=== PATIENT | male | born 1980 | race Caucasian/White ===

== ENCOUNTER 2016-08-20 08:11 | Emergency (ER) | payer OTHER ==
[~2016-08-20] VITALS: Ht 180.3 cm; Wt 107.9 kg
[~2016-08-20 08:11] MED LIST: ATEN-173 PO; CHOLMIS5 PO
[2016-08-20 08:15] VITALS: TEMP 36.4; Ht 180.3 cm; Wt 107.9 kg
--- NOTE | 2016-08-20 09:03 | DIAGNOSTIC IMAGING REPORT ---
RIGHT FOOT 3 VIEWS CLINICAL HISTORY: Right lateral foot pain. FINDINGS: 3 views of the right foot are compared to study dated 02/11/2016. The skeletal structures appear osteopenic. There is mild sclerotic change and contour deformity involving the fourth and fifth metatarsal shafts, likely related to remote fracture. No acute fracture is seen. The joint spaces of the foot appear preserved. The overlying soft tissues are within normal limits. IMPRESSION: 1. Osteopenia with no acute bony abnormality seen in the right foot. 2. 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 Electronically signed by: Jae Calvillo M.D. 08/20/2016 9:01 AM Dictated Date/Time: 08/20/2016 8:59 AM
[2016-08-20 09:49] VITALS: BP 129/73; PULSE 72; O2SAT 96
--- NOTE | 2016-08-20 10:20 | EMERGENCY ROOM VISIT NOTE ---
History First contact with patient: 08:18 Chief Complaint: FOOT PAIN Stated Complaint: FOOT PAIN/BURNING History of Present Illness The patient is a 35 year old male who presents to the Emergency Room with complaints of Rt foot pain. Pain is described as a burning sensation on the lateral aspect of the right foot, worse with walking. No pain at rest . He denies recent injury. He also reports occasional tingling on lateral aspect of Rt foot. He has a hx of fx involving right foot Oct 2015, and an additional fx of the same foot 6 wks later. Patient is Diabetic with BGL measurements in the 200's , last A1C 3 mos ago per patient was 10. Pt denies headache, change in vision, fevers, chest pain, shortness of breath, nausea, vomiting, diarrhea, pain with urination, and melena. Review of Systems See HPI for pertinent positives & negatives. A total of 10 systems reviewed and were otherwise negative. Past Medical/Surgical History Medical Problems: (1) Diabetes type I Diabetes II Social History Smoking Status: Never Smoker Current/Historical Medications Scheduled Insulin Glargine (Lantus), 26 UNITS SQ BID Insulin Lispro (Human) (Humalog), 1 DOSE SC sliding scale Loratadine (Claritin), 10 MG PO HS Simvastatin (Zocor), 20 MG PO QPM Valsartan (Diovan), 80 MG PO DAILY Allergies Coded Allergies: No Known Allergies (Unverified , 08/20/16) Physical Exam Vital Signs Date Time Temp Pulse Resp B/P Pulse Ox O2 Delivery O2 Flow Rate FiO2 08/20/16 09:49 72 16 129/73 96 08/20/16 08:15 36.4 77 18 136/78 98 Room Air Physical Exam GENERAL: alert, well appearing, well nourished, no distress, non-toxic EYE EXAM: normal conjunctiva, PERRL and EOM's grossly intact NECK: supple, no nuchal rigidity, no adenopathy, non-tender LUNGS: Clear to auscultation. Normal chest wall mechanics HEART: no murmurs, S1 normal and S2 normal ABDOMEN: abdomen soft, non-tender, normo-active bowel sounds, no masses, no rebound or guarding. SKIN: no rashes and no bruising UPPER EXTREMITIES: upper extremities are grossly normal. LOWER EXTREMITIES: Rt foot: tenderness at lateral aspect of foot, sensation intact, full ROM , PT, DP,pulses intact NEURO EXAM: Normal sensorium, cranial nerves II-XII grossly intact, normal speech, no gross weakness of arms, no gross weakness of legs. Gross sensation intact. Medical Decision & Procedures ER Provider Diagnostic Interpretation: RIGHT FOOT 3 VIEWS CLINICAL HISTORY: Right lateral foot pain. FINDINGS: 3 views of the right foot are compared to study dated 02/11/2016. The skeletal structures appear osteopenic. There is mild sclerotic change and contour deformity involving the fourth and fifth metatarsal shafts, likely related to remote fracture. No acute fracture is seen. The joint spaces of the foot appear preserved. The overlying soft tissues are within normal limits. IMPRESSION: 1. Osteopenia with no acute bony abnormality seen in the right foot. 2. 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 Medical Decision 35 yo M with hx of poorly controlled DM II, hx of multiple fx's involving Rt foot p/w Rt sided lateral foot pain x a few wks Etiologies such as fracture, dislocation, neurovascular compromise, DM neuropathy, compartment syndrome, soft tissue injury, as well as others were entertained. Rt Foot Pain -burning sensation on lateral aspect of rt foot - as pain is unilateral, etiology may be due to fx although acute fx is not seen on radiologist impression. neuropathy was considered given patient poorly controlled Diabetes however unilateral nature and distribution of pain is not immediately consistent with this etiology X-ray Rt foot: No acute fx 1. Osteopenia with no acute bony abnormality seen in the right foot. 2. 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 I discussed the findings and the treatment plan with the patient. He verbalizes agreement and understanding. He was discharged home wit follow up to PCP within 24 hrs. Impression Primary Impression: Foot pain Departure Information Dispostion Home / Self-Care Condition GOOD Referrals No Doctor, Assigned (PCP) Patient Instructions My [facility] Resident Tracking Resident Involvement: Resident Care Provided Care Provided: Adult ED Problem Qualifiers Primary Impression: Foot pain Laterality: right Qualified Codes: M79.671 - Pain in right foot
--- NOTE | 2016-08-20 14:13 | EMERGENCY ROOM VISIT NOTE ---
History Report prepared by Yahaira: Elis Chandler Under the Supervision of: Dr. Randy Ochoa D.O. First contact with patient: 08:18 Chief Complaint: FOOT PAIN Stated Complaint: FOOT PAIN/BURNING History of Present Illness The patient is a 35 year old male who presents to the Emergency Room with complaints of persistent right lateral foot pain starting 3 weeks ago. He describes the pain as burning. The pain worsens with walking. At rest, he experiences little pain. He reports some tingling at times. He denies any injury. He denies any knee pain, hip pain, or numbness. He denies any chest pain , SOB, nausea, vomiting, or diarrhea. He has a history of diabetes. He checks his sugars regularly and they run in the 200s normally. He has previously fractured his foot. He works in [employer]. Source of History: patient Onset: 3 weeks ago Position: foot (right) Quality: burning Timing: other (persistent) Modifying Factors (Worsening): other (walking) Modifying Factors (Relieving): rest Associated Symptoms: No SOB, No chest pain, No diarrhea, No nausea, No numbness, No vomiting Note: Pt reports tingling. Pt denies knee pain, hip pain. Review of Systems See HPI for pertinent positives & negatives. A total of 10 systems reviewed and were otherwise negative. Past Medical & Surgical Medical Problems: (1) Diabetes type I Family History Diabetes mellitus Social History Smoking Status: Never Smoker Alcohol Use: none Marital Status: in relationship Housing Status: lives with significant other Occupation Status: employed Current/Historical Medications Scheduled Insulin Glargine (Lantus), 26 UNITS SQ BID Insulin Lispro (Human) (Humalog), 1 DOSE SC sliding scale Loratadine (Claritin), 10 MG PO HS Simvastatin (Zocor), 20 MG PO QPM Valsartan (Diovan), 80 MG PO DAILY Allergies Coded Allergies: No Known Allergies (Unverified , 08/20/16) Physical Exam Vital Signs Date Time Temp Pulse Resp B/P Pulse Ox O2 Delivery O2 Flow Rate FiO2 08/20/16 09:49 72 16 129/73 96 08/20/16 08:15 36.4 77 18 136/78 98 Room Air Physical Exam GENERAL: alert, well appearing, well nourished, no distress, non-toxic EYE EXAM: normal conjunctiva CHEST: Normal chest wall mechanics. UPPER EXTREMITIES: upper extremities are grossly normal. RIGHT LOWER EXTREMITY: Full active and passive ROM of hip, knee, and ankle. DP, PT 2/4 on right. Gross sensation intact, skin intact, Achilles intact. No tenderness of medial or lateral malleolus. Minimal tenderness past 5th metatarsal. No tenderness throughout arch of foot. NEURO EXAM: Normal sensorium, cranial nerves II-XII grossly intact, normal speech, no gross weakness of arms, no gross weakness of legs. Medical Decision & Procedures ER Provider Diagnostic Interpretation: Xray results as stated below per the radiologist's and my interpretation: RIGHT FOOT 3 VIEWS CLINICAL HISTORY: Right lateral foot pain. FINDINGS: 3 views of the right foot are compared to study dated 02/11/2016. The skeletal structures appear osteopenic. There is mild sclerotic change and contour deformity involving the fourth and fifth metatarsal shafts, likely related to remote fracture. No acute fracture is seen. The joint spaces of the foot appear preserved. The overlying soft tissues are within normal limits. IMPRESSION: 1. Osteopenia with no acute bony abnormality seen in the right foot. 2. 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 Electronically signed by: Jae Calvillo M.D. 08/20/2016 9:01 AM Dictated Date/Time: 08/20/2016 8:59 AM ED Course ED COURSE: Vital signs were reviewed and showed normal vitals. The patients medical record was reviewed The above diagnostic studies were performed and reviewed. ED treatments and interventions as stated above. 0839: The patient was evaluated in room A9. A complete history and physical examination was performed. 0920: Upon reevaluation, the patient is resting comfortably.I discussed my findings with the patient and he understands and agrees with the treatment plan. Based on the patients age, coexisting illnesses, exam and lab findings the decision to treat as an outpatient was made. The patient remained stable while under my care. The patient appeared well at the time of discharge. Medical Decision Differential diagnosis: Etiologies such as fracture, dislocation, neurovascular compromise, compartment syndrome, soft tissue injury, as well as others were entertained. Patient is a 35-year-old male who presents the ER with pain at the base of his fifth metatarsal. This has been present for the past several weeks. No trauma. He is a diabetic. This is not bilateral. X-rays show no acute fractures. Patient was updated at bedside. I do favor this is likely musculoskeletal as opposed to diabetic neuropathy although this is also a possibility. Patient was updated at bedside and discharged to follow-up with his primary care doctor to have repeat x-rays if this persist over the next 3-5 days. Discussed with Pt concerning signs and symptoms to watch out for. Pt was instructed to follow up with their PCP and discussed with the patient their option to return to the ED at anytime for persistent or worsening symptoms. The appropriate anticipatory guidance and out-patient management, including indications for return to the emergency department, were explained at length to the patient and understood. Impression Primary Impression: Right foot pain Scribe Attestation The scribe's documentation has been prepared under my direction and personally reviewed by me in its entirety. I confirm that the note above accurately reflects all work, treatment, procedures, and medical decision making performed by me. Departure Information Dispostion Home / Self-Care Referrals No Doctor, Assigned (PCP) Huey Miller D.O. Forms HOME CARE DOCUMENTATION FORM, IMPORTANT VISIT INFORMATION Patient Instructions ED Sprain Foot, My [facility] Additional Instructions Please follow up with your primary care doctor with in the next 24 hours. Any worsening of your symptoms, please return to the ED immediately. This includes redness of the foot, inability to walk on it, worsening pain, fevers greater than 100.4, or any other concerning signs or symptoms from your standpoint. If you continue to have pain over the next 3-5 days you will need repeat x-rays.
[2016-09-26] MEDS ORDERED: DVN80 PO (09:10)
[2016-09-26] MEDS ORDERED: SIMV20TA2 PO (09:10)
[2016-09-26] MEDS ORDERED: INSU100I SC (15:10)
[2016-09-26] MEDS ORDERED: CLR10 PO (15:10)
[2016-09-26] MEDS ORDERED: INSDGI SQ (15:10)
== END 2016-08-20 09:50 | disposition home or self-care (01) ==
LOC: C.EDB 08:13 → C.EDA 09:50
DX: M79.671 Pain in right foot (principal); E10.9 Type 1 diabetes mellitus without complications; Z79.4 Long term (current) use of insulin; Z79.899 Other long term (current) drug therapy; Z83.3 Family history of diabetes mellitus

== ENCOUNTER 2016-09-26 20:18 | Emergency (ER) | payer OTHER ==
[~2016-09-26] VITALS: Ht 180.3 cm; Wt 104.3 kg
[~2016-09-26 20:18] MED LIST changes: -ATEN-173 PO; -CHOLMIS5 PO; +CLR10 PO; +DVN80 PO; +INSDGI SQ; +INSU100I SC; +SIMV20TA2 PO
[2016-09-26 20:21] VITALS: TEMP 36.6; Ht 180.3 cm; Wt 104.3 kg
[2016-09-26] MEDS ORDERED: GLC/500 PO (20:52)
--- NOTE | 2016-09-26 21:26 | DIAGNOSTIC IMAGING REPORT ---
RIGHT FOOT MIN 3 VIEWS ROUTINE CLINICAL HISTORY: right foot pain Right pain COMPARISON: 08/20/2016 DISCUSSION: Cortical thickening and sclerosis of the shaft of the fourth and fifth metatarsal. This presumably is related to old posttraumatic change. No acute or interval finding. Soft tissue vascular calcification. Mild degenerative change of the tarsometatarsal joints as well as interphalangeal joints. There is no evidence for soft tissue swelling. IMPRESSION: Findings consistent with a combination of old trauma and mild degenerative change. No acute process. Electronically signed by: Linden Townsend M.D. 09/26/2016 9:25 PM Dictated Date/Time: 09/26/2016 9:24 PM
[2016-09-26 22:15] VITALS: BP 126/87; PULSE 77; O2SAT 96
--- NOTE | 2016-09-26 22:38 | EMERGENCY ROOM VISIT NOTE ---
History First contact with patient: 20:38 Chief Complaint: FOOT PAIN Stated Complaint: ROOT PROBLEMS History of Present Illness The patient is a 35 year old male who presents to the Emergency Room with complaints of persistent right foot pain for the past several months. The patient relates an old history of fractures to this foot, which seemed to cause him pain on an intermittent basis. The patient stands on his feet several hours per day at work, and he does work manual labor. The patient is also diabetic and states that his sugars have been between 200-300, which is normal for him. At times his pain is an ache-like sensation, however sometimes it is a burn sensation. The patient has followed with orthopedics in the past, and despite his symptoms worsening over the past 2 weeks has not contacted them. He rates his current discomfort a 11/18 Review of Systems More than 10 systems were reviewed and otherwise negative with the exception of history of present illness. Past Medical/Surgical History Medical Problems: (1) Diabetes type I Family History Diabetes mellitus Social History Smoking Status: Never Smoker Alcohol Use: none Marital Status: in relationship Housing Status: lives with significant other Occupation Status: employed Current/Historical Medications Scheduled Insulin Glargine (Lantus), 26 UNITS SQ BID Insulin Lispro (Human) (Humalog), 1 DOSE SC TIDM Loratadine (Claritin), 10 MG PO HS Metformin Hcl (Glucophage), 1,000 MG PO BID Simvastatin (Zocor), 20 MG PO QPM Valsartan (Diovan), 80 MG PO DAILY Allergies Coded Allergies: No Known Allergies (Unverified , 08/20/16) Physical Exam Vital Signs Date Time Temp Pulse Resp B/P Pulse Ox O2 Delivery O2 Flow Rate FiO2 09/26/16 22:15 77 20 126/87 96 09/26/16 20:21 36.6 91 18 120/80 98 Room Air Pain Rating (0-10): 3.0 Physical Exam VITALS: Vitals are noted on the nurse's note and reviewed by myself. Vital signs stable. GENERAL: Well-developed, well-nourished, white male, who is in no acute distress and resting comfortably. Patient is cooperative with the examination. HEAD: Normocephalic atraumatic. HEART: Regular rate and rhythm without murmurs gallops or rubs. LUNGS: Clear to auscultation bilaterally without wheezes, rales or rhonchi. No retractions or accessory muscle use. MUSCULOSKELETAL: Mild tenderness appreciated over the lateral right midfoot. No significant abrasion, laceration, or deformity noted. No ulcerations throughout the foot. Neurovascular status appears intact. No plantar aspect tenderness. Achilles without tenderness. NEURO: Patient was alert and oriented to person place and time. CN II through XII grossly intact. Medical Decision & Procedures ER Provider Diagnostic Interpretation: RIGHT FOOT MIN 3 VIEWS ROUTINE CLINICAL HISTORY: right foot pain Right pain COMPARISON: 08/20/2016 DISCUSSION: Cortical thickening and sclerosis of the shaft of the fourth and fifth metatarsal. This presumably is related to old posttraumatic change. No acute or interval finding. Soft tissue vascular calcification. Mild degenerative change of the tarsometatarsal joints as well as interphalangeal joints. There is no evidence for soft tissue swelling. IMPRESSION: Findings consistent with a combination of old trauma and mild degenerative change. No acute process. ED Course Physical exam and history were performed. Nursing notes and EMR were reviewed. Patient appears to have chronic right foot pain that appears to be acutely exacerbated the past 2 weeks. X-rays were obtained and read by myself and radiology as showing no acute process. Overall the patient appears stable for discharge home. I did offer crutches and a postop shoe, however the patient refused. He has followed with orthopedics in the past, and I feel this should be his next destination. I cannot rule out the possibility of a diabetic neuropathy contributing to his symptoms. 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 The patient was asked use [id number] analgesics. He was otherwise invited back to the ER with any new, worsening, or concerning symptoms. The chart was completed utilizing [employer] Speech Voice Recognition Software. Grammatical errors, random word insertions, pronoun errors, and incomplete sentences are an occasional consequence of this system due to software limitations, ambient noise, and hardware issues. Any formal questions or concerns about the content, text, or information contained within the body of this dictation should be directly addressed to the provider for clarification. . Medical Decision Differential diagnosis includes, but is not limited to: Sprain, strain, fracture , dislocation, subluxation, contusion, neuropathy, and others [place] Drug Monitoring Program Search Results: patient reviewed within database, no issues identified Impression Primary Impression: Right foot pain Departure Information Dispostion Home / Self-Care Condition GOOD Referrals Álvaro Mccormick D.O. Forms HOME CARE DOCUMENTATION FORM, IMPORTANT VISIT INFORMATION Patient Instructions My [facility] Additional Instructions You were seen and evaluated today on an emergency basis only. This is not a substitute for, or an effort to provide, complete comprehensive medical care. It is not possible to recognize and treat all injuries or illnesses in a single emergency department visit. For this reason it is recommended that you followup with Orthopedics, Dr. Mccormick's office, for ongoing care and evaluation. For baseline pain relief you may alternate ibuprofen and acetaminophen every 4 hours for pain control. Take 600 mg ibuprofen (Advil) and then 4 hours later take 1000 mg acetaminophen (Tylenol). Do not take more than 3000 mg acetaminophen in a single day. You may also wish to follow with your box truck washer or primary care physician. Your symptoms may be the result of your diabetes. You are welcome to return to the emergency department anytime with new, worsening, or concerning symptoms.
== END 2016-09-26 22:15 | disposition home or self-care (01) ==
LOC: C.EDB 20:19 → C.EDD 22:15
DX: M79.671 Pain in right foot (principal); E10.9 Type 1 diabetes mellitus without complications; Z83.3 Family history of diabetes mellitus; Z79.4 Long term (current) use of insulin; Z79.899 Other long term (current) drug therapy

== ENCOUNTER → 2016-10-08 | Outpatient (CLI) | payer OTHER ==
[~2016-10-08] MED LIST changes: +GLC/500 PO
--- NOTE | 2016-10-08 19:24 | DIAGNOSTIC IMAGING REPORT ---
MRI OF THE RIGHT FOREFOOT WITHOUT IV CONTRAST CLINICAL HISTORY: Right lateral foot pain. History of previous fracture. COMPARISON STUDY: Radiographs of the right foot dated 09/26/2016 and 08/20/2016. TECHNIQUE: MRI of the right forefoot is performed utilizing various T1 and T2-weighted sequences in the axial, sagittal, and coronal planes. IV contrast was not administered for this examination. FINDINGS: There is marrow edema seen throughout the fifth metatarsal. There is a T1 and T2 hyperintense region seen involving the proximal shaft of the fifth metatarsal, best seen on axial image #25 of 34 and sagittal image #8 of 31. There is no clear distraction at this site. There is significant edema in the surrounding superficial and deep soft tissues, and this is located deep to the cutaneous marker at the site of interest. Chronic posttraumatic change is also seen involving the proximal shaft of the fourth metatarsal. No significant marrow edema is identified. No additional foci of marrow edema are clearly seen in the forefoot. The visualized flexor and extensor tendons are grossly intact. IMPRESSION: 1. There is marked marrow edema throughout the fifth metatarsal. 2. There is focal drop in signal seen on both the T1 and STIR sequences involving the proximal shaft of the fifth metatarsal, likely at the previous fracture site. This could represent an acute on chronic fracture if there has been interval trauma from the 09/26/2016 radiographs. The drop in signal also essentially represent focal osteonecrosis, and there is significant edema in the overlying soft tissues. Clinical correlation will be required. 3. Chronic posttraumatic change is also seen in the fourth metatarsal. Dictated: 10/08/2016 6:09 PM Transcribed: 10/08/2016 7:23 PM Kenny Electronically signed by: Jae Calvillo M.D. 10/09/2016 11:42 AM Dictated Date/Time: 10/08/2016 6:09 PM
== END | disposition home or self-care (01) ==
LOC: C.MRI 16:36
PROVIDERS: ATTEND Physician Assistant
DX: M79.671 Pain in right foot (principal)

== ENCOUNTER 2017-03-24 14:37 | Emergency (ER) | payer OTHER ==
[~2017-03-24] VITALS: Ht 180.3 cm; Wt 107.0 kg
[2017-03-24 14:40] VITALS: BP 132/89; TEMP 36.4; Ht 180.3 cm; Wt 107.0 kg
--- NOTE | 2017-03-24 15:06 | DIAGNOSTIC IMAGING REPORT ---
L FOOT MIN 3 VIEWS ROUTINE CLINICAL HISTORY: 36 years-old Male presenting with L lat foot pain. TECHNIQUE: Frontal, oblique, and lateral views of the left foot were obtained. COMPARISON: None. FINDINGS: No acute fracture or malalignment. No advanced degenerative change. Osteopenia suspected. No soft tissue irregularity or cici ulceration is apparent. Atherosclerosis, which is advanced for the patient's age likely implying underlying diabetes. IMPRESSION: No acute osseous injury of the left foot. Electronically signed by: Boone Mckeon M.D. 03/24/2017 3:05 PM Dictated Date/Time: 03/24/2017 3:03 PM
--- NOTE | 2017-03-24 15:35 | EMERGENCY ROOM VISIT NOTE ---
History First contact with patient: 14:44 Chief Complaint: FOOT PAIN Stated Complaint: BROKEN FOOT History of Present Illness The patient is a 36 year old male who presents to the Emergency Room with complaints of left foot pain after he felt something pop well lifting furniture into a truck. The patient now reports his pain rated a 10 out of 10 with weightbearing. The patient has a history of right fifth metatarsal stress fracture, and was under the management of Dr. Mccormick. The patient reports that the pain feels the same, just in the opposite foot. He denies any known prior history of left foot injury. He denies any paresthesias or numbness of the foot or toes, and denies any pain extending into the heel or ankle. Review of Systems 10 system review was performed and was negative except for pertinent positives and negatives as indicated in history of present illness Past Medical/Surgical History Medical Problems: (1) Diabetes type I Family History Diabetes mellitus Social History Smoking Status: Never Smoker Alcohol Use: none Marital Status: in relationship Housing Status: lives with significant other Occupation Status: employed Current/Historical Medications Scheduled Insulin Glargine (Lantus), 26 UNITS SQ BID Insulin Lispro (Human) (Humalog), 1 DOSE SC TIDM Loratadine (Claritin), 10 MG PO HS Metformin Hcl (Glucophage), 1,000 MG PO BID Simvastatin (Zocor), 20 MG PO QPM Valsartan (Diovan), 80 MG PO DAILY Physical Exam Vital Signs Date Time Temp Pulse Resp B/P (MAP) Pulse Ox O2 Delivery O2 Flow Rate FiO2 03/24/17 14:40 36.4 86 17 132/89 96 Room Air Physical Exam CONSTITUTIONAL: Healthy and well nourished. Patient was sleeping upon arrival to his examination room, and does not appear in any acute distress. HEENT: Normocephalic, atraumatic. Pupils equal, round and reactive. NECK: Full active range of motion without discomfort. MUSCULOSKELETAL: Examination of the left foot does not show any soft tissue edema, ecchymosis or deformities. He has no focal tenderness over the fifth metatarsal region. He does have mild discomfort over the dorsal midfoot, and has worsening pain with subtalar motion. No tenderness to palpation about the ankle, phalanges, arch, calcaneus or Achilles tendon. Pedal pulses are intact. INTEGUMENTARY: No rash or other significant dermatologic conditions noted. NEUROLOGIC: Left foot and toes are sensory intact. Medical Decision & Procedures ER Provider Diagnostic Interpretation: My interpretation of left foot x-rays does not show any obvious fractures or dislocations. Radiologist report is as follows: L FOOT MIN 3 VIEWS ROUTINE CLINICAL HISTORY: 36 years-old Male presenting with L lat foot pain. TECHNIQUE: Frontal, oblique, and lateral views of the left foot were obtained. COMPARISON: None. FINDINGS: No acute fracture or malalignment. No advanced degenerative change. Osteopenia suspected. No soft tissue irregularity or cici ulceration is apparent. Atherosclerosis, which is advanced for the patient's age likely implying underlying diabetes. IMPRESSION: No acute osseous injury of the left foot. ED Course Patient history and physical exam were performed. Nurse's notes were reviewed. Vital signs were reviewed and were normal. The patient refused any analgesics on initial exam. X-rays of the left foot were normal. The reports that the patient has 2 pairs of crutches at home but likely will not use then. The patient was encouraged to use his crutches to remain limited weightbearing until he follows up with Dr. Mccormick. He was encouraged to intermittently apply ice to the foot, and alternate ibuprofen and Tylenol as needed for additional pain relief. The patient voiced understanding of all discharge instructions, and rated his discomfort a 4 out of 10 at the conclusion of my exam. Medical Decision Medication Reconcilliation Current Medication List: was personally reviewed by me Blood Pressure Screening Patient's blood pressure: Normal blood pressure Impression Primary Impression: Injury of left foot Departure Information Referrals Álvaro MccormickDMaria Del RosarioOMaria Del Rosario (PCP) Patient Instructions My [facility] Problem Qualifiers Primary Impression: Injury of left foot Encounter type: initial encounter Qualified Codes: S99.922A - Unspecified injury of left foot, initial encounter
[2017-03-24 15:37] VITALS: PULSE 74; O2SAT 97
== END 2017-03-24 15:37 | disposition home or self-care (01) ==
LOC: C.EDB 14:37 → C.EDD 15:37
DX: S99.929A Unspecified injury of unspecified foot, initial encounter (principal); X50.1XXA Overexertion from prolonged static or awkward postures, initial encounter; Y92.89 Other specified places as the place of occurrence of the external cause; E10.9 Type 1 diabetes mellitus without complications; Z79.4 Long term (current) use of insulin; Z79.899 Other long term (current) drug therapy; Z83.3 Family history of diabetes mellitus

== ENCOUNTER 2021-04-26 23:03 | Inpatient (IN) ==
[2021-04-26] MEDS ORDERED: MoRPHine SULFATE 4 MG/ML 1 ML CARP\\VIAL IV STA (23:23)
[2021-04-26] MEDS ORDERED: SODIUM CHLORIDE 0.9% 500 ML IV STA (23:23)
[2021-04-26] MEDS ORDERED: ONDANSETRON INJ 2 MG/ML 2 ML VIAL IV STA (23:23)
--- NOTE | 2021-04-26 23:26 | Emergency Department Note ---
Impression & Plan Discitis of thoracic region, Acute osteomyelitis of thoracic spine Plan for transfer ED Provider Note Patient arrived to the ED via [facility] HPI: The patient is a very pleasant 40-year-old male who presents the emergency department the chief complaint of bilateral flank pain. Patient states that he has had this pain now for several weeks, states that he has been seen in the emergency department twice without evidence of obvious etiology for his pain following CT imaging. Patient states that he did have some resolution of his pain following analgesia and a course of steroids. States the pain seems to have returned over the past several days and is very severe. Patient also notes that about 10 days ago he had an abscess on his back that his mother drained at home. He states this seems to have healed over appropriately without issue. Patient states the pain in his bilateral flank area and behind his lower ribs posteriorly. He denies any anterior chest pain or shortness of breath. Denies any recent fevers or cough. Patient denies any nausea or vomiting. Denies any diarrhea. On arrival he is in mild distress secondary to pain, he is otherwise hemodynamically stable and saturating well on room air. ROS: -MSK: Bilateral flank pain/rib pain *10 point review systems was conducted and is otherwise negative unless stated above *Outpatient medications and allergy history reviewed PE: General: Alert, NAD HEENT: Normocephalic, atraumatic, trachea midline Eyes: Extraocular eye movement is intact, no scleral erythema Pulmonary: Clear to auscultation bilaterally, no wheezing Cardio: Regular rate and rhythm GI: Abdomen is soft, nontender : No suprapubic tenderness, there is palpable tenderness in the bilateral flank area in the area of the bilateral ribs #11 and 12 MSK: No evidence of trauma or malformation of the extremities, no edema Skin: No evidence of rash Neuro: Alert, no focal deficits, full motor and sensory function is appreciated in the lower extremities with testing against gravity, there is no midline tenderness of the thoracic or lumbar spine with palpation, no fluctuance, no step-off deformity Psychiatric: Cooperative radiation monitor: - An order was placed for continuous cardiac monitoring - Patient was noted to be in sinus rhythm with rate of 95 EKG: Rate: 97 Rhythm: Normal sinus rhythm Intervals: Within normal limits ST changes: No ST elevation Time: 2332 CT ABDOMEN & PELVIS With Contrast: 6.8 cm distention of the cecum and right colon suggesting constipation. The remaining bowel loops are nondilated. No acute inflammatory changes are seen involving the bowel. The liver, gallbladder, pancreas, spleen, and adrenal glands are unremarkable. Slight edema involving the kidneys. This is nonspecific. No hydronephrosis, mass, or ureterolithiasis is seen. The urinary bladder is partially distended and unremarkable. Skeletal structures are unremarkable. Radiologist: Joaquin Jiang MD CTA CHEST: Comparison to April 07, 2021 The pulmonary arterial tree is well opacified with contrast. No pulmonary emboli are identified. There is paraspinous edema adjacent to the T8-9 level with osteolysis involving the superior endplate of T8 characteristic of discitis/osteomyelitis. The thoracic aorta is nondilated. There is no aneurysm or dissection. The heart is not enlarged. No pericardial effusion. Mild scattered subsegmental atelectasis is seen in both lung bases. Limited images of the upper abdomen are unremarkable. Radiologist: Joaquin Jiang MD MRI T SPINE : Abnormal decreased T1 signal and enhancement throughout the T8 vertebral body, also involving the inferior half of T7 in the adjacent soft tissues consistent with discitis/osteomyelitis. No epidural abscess is seen. The remaining thoracic levels appear unremarkable. No disc bulge or herniation is identified. The thecal sac is well appearing. The cord signal is normal. Medical Decision Making: Patient presented with bilateral flank pain and rib pain. This is mostly in the posterior lateral back/rib area. Patient denies any recent fevers, states he did recently have an abscess on his back that was drained at home by his mother. Lab work was obtained, there is no leukocytosis, no left shift, patient does have hyperglycemia in the 280s, he does have a history of diabetes. CRP is slightly elevated. Otherwise there is no evidence of acute kidney injury, no evidence of any critical electrolyte abnormalities. Interventions included IV analgesia, patient was started on IV vancomycin and IV cefepime following CT imaging results that showed evidence of osteomyelitis/discitis in the area of the endplate of T8 and T9. Blood cultures were drawn in the ED. No evidence of any acute abnormalities within the abdomen or pelvis on CT imaging. On my reevaluation the patient is resting comfortably, states back pain is improved, I discussed the above findings with the patient, recommended transfer to tertiary care facility given that we do not have any coverage for spinal surgery here at this facility for the next 3 days. Patient is in agreement, initially called [facility] however they are on a prolonged wait for out of facility/ system transfers and did not take my call. Therefore referral was made to [facility] in [place], spoke with on-call neurosurgery Dr. Remy who states that there is a 2 to 3-day wait for transfer to their facility as well. I did then reach out to [facility], discussed the case with on- call neurosurgery/spinal surgery Dr. Dubon. There is a prolonged wait at this facility as well and patient will be placed on the transfer list of both [facility] and [facility] for the time being while we continue IV antibiotics and await the results of cultures. MRI of the thoracic spine was then obtained, does confirm that there is evidence of osteomyelitis and discitis at the levels of T7 and T8 without any impingement of the spinal cord, no evidence of epidural abscess. Patient remains neurologically intact on repeat assessment, he did require second dose of morphine for pain. Patient is in agreement to the above plan, he is in agreement to await transfer to tertiary care when bed is available. At this time, given the projected wait time for bed at tertiary care facilities, I did discuss case with the on-call hospitalist, Dr. Jiang, who graciously excepted the patient for medical management while he awaits transfer to facility that has spinal surgery capabilities. We were able to touch base with Dr. Vega of spinal surgery at approximately 0630, although he is not on-call he graciously is willing to consult on the patient for further recommendations based off the imaging results while the patient is admitted to the medicine service. Given this the patient will stay here [facility] for further care and will be admitted to the medicine service. Patient was in agreement to the above plan and was updated on all the above, he will be removed from the transfer waitlist at the above tertiary care centers. He was admitted in stable condition. * CRITICAL CARE TIME: 55 minutes -Diagnosis and management of osteomyelitis/discitis of the thoracic spine at the level of T8/T9, interpretation of diagnostic studies, discussion with other physicians including radiology, multiple neurosurgeons and multiple tertiary care facilities for possible transfer, time spent at the bedside, discussion with the on-call hospitalist as well as eventually spinal surgery at this facility for arrangement of admission Diagnosis: 1. Osteomyelitis/discitis of the thoracic spine at the level of T7 / T8 2. Hyperglycemia in the setting of poorly controlled insulin-dependent diabetes 3. Acute back pain/flank pain bilaterally 4. Elevated CRP Disposition: Admission Linden Graff DO Emergency Medicine Past Med/Surg History Medical History (Updated 04/27/21 @ 03:45 by Linden Graff DO) Diabetes type I Dyslipidemia Hypertension Surgical History History of appendectomy Social History Smoking Status: Never smoker Preferred Language: Vietnamese Feels Safe at Home: Yes Allergies Allergies Allergy/AdvReac Type Severity Reaction Status Date / Time No Known Allergies Allergy Unverified 04/27/21 01:53 Home Meds Home Medications Medication Instructions Recorded Confirmed atorvastatin 20 mg tablet 20 mg PO HS 03/09/20 04/27/21 insulin glargine 100 unit/mL (3 30 unit SUBCUT AMPM 03/09/20 04/27/21 mL) subcutaneous pen (Lantus Solostar U-100 Insulin) insulin lispro 100 unit/mL 12 unit SUBCUT AC 03/09/20 04/27/21 subcutaneous solution (Humalog U-100 Insulin) losartan 25 mg tablet 25 mg PO PM 03/09/20 04/27/21 cyclobenzaprine 10 mg tablet 10 mg PO TID PRN 04/27/21 04/27/21 Results & Data (ED) Vital Signs Vital Signs - 24 hr 04/26/21 23:04 04/26/21 23:13 04/26/21 23:23 Temperature 36.6 C Temperature Source Temporal Artery Scan Pulse Rate 101 H 98 H Pulse Rate [Right Finger] 98 H Respiratory Rate 16 20 16 Respiratory Effort / Characteristics Non-Labored Respiratory Depth Normal Blood Pressure 156/83 H Blood Pressure [Right Arm] 141/92 H Blood Pressure Mean 107 Blood Pressure Mean [Right Arm] 108 Blood Pressure Position Sitting Pulse Oximetry 96 98 96 Oxygen Delivery Method Room Air Room Air Sepsis Recent Fever Within 48 Hours No Sepsis New/Unexplained Change in Mental Status N/A Sepsis Action Taken by Nursing No Action Required 04/27/21 00:43 04/27/21 02:00 04/27/21 04:00 Temperature Temperature Source Pulse Rate Pulse Rate [Right Finger] 94 H 91 H 88 Respiratory Rate 16 16 16 Respiratory Effort / Characteristics Respiratory Depth Blood Pressure Blood Pressure [Right Arm] 125/89 140/96 132/93 Blood Pressure Mean Blood Pressure Mean [Right Arm] 101 110 106 Blood Pressure Position Pulse Oximetry 96 96 99 Oxygen Delivery Method Room Air Room Air Sepsis Recent Fever Within 48 Hours Sepsis New/Unexplained Change in Mental Status Sepsis Action Taken by Nursing 04/27/21 06:00 Temperature Temperature Source Pulse Rate Pulse Rate [Right Finger] 82 Respiratory Rate 15 Respiratory Effort / Characteristics Respiratory Depth Blood Pressure Blood Pressure [Right Arm] 141/77 H Blood Pressure Mean Blood Pressure Mean [Right Arm] 98 Blood Pressure Position Pulse Oximetry 94 Oxygen Delivery Method Sepsis Recent Fever Within 48 Hours Sepsis New/Unexplained Change in Mental Status Sepsis Action Taken by Nursing Laboratory Data Result diagrams: 04/26/21 23:30 04/26/21 23:30 Lab Results 04/26/21 04/26/21 04/26/21 Range/Units 23:30 23:30 23:30 WBC 5.68 (4.8-10.8) K/uL RBC 4.61 L (4.7-6.1) M/uL Hgb 12.5 L (14.0-18.0) g/dL Hct 39.0 L (42-52) % MCV 84.6 (80-100) fL MCH 27.1 (25-34) pg MCHC 32.1 (32-36) g/dL RDW Std Deviation 40.9 (36.4-46.3) fL RDW Coeff of Reuben 13.2 (11.5-14.5) % Plt Count 251 (130-400) K/uL MPV 10.6 H (7.4-10.4) fL Immature Gran % (Auto) 0.7 % Neut % (Auto) 63.3 % Lymph % (Auto) 16.4 % [place] % (Auto) 14.8 % Eos % (Auto) 4.4 % Baso % (Auto) 0.4 % Neut # (Auto) 3.60 (1.4-6.5) K/uL Lymph # (Auto) 0.93 L (1.2-3.4) K/uL [place] # (Auto) 0.84 H (0.11-0.59) K/uL Eos # (Auto) 0.25 (0-0.5) K/uL Baso # (Auto) 0.02 (0-0.2) K/uL Immature Gran # (Auto) 0.04 H (0.00-0.02) K/uL ESR (0-15) mm/hr PT 9.3 (9.0-12.0) Seconds INR 0.9 (0.9-1.1) APTT 24.5 (21.0-31.0) Seconds PTT Ratio 0.9 Sodium 135 L (136-145) mmol/L Potassium 4.2 (3.5-5.1) mmol/L Chloride 102 (98-107) mmol/L Carbon Dioxide 29 (21-32) mmol/L Anion Gap 4.0 (3-11) BUN 16 (7-18) mg/dl Creatinine 0.89 (0.6-1.4) mg/dl Est Cr Clr Drug Dosing 139.6 ml/min Est GFR ( Amer) 122.2 ml/min Est GFR (Non-Af Amer) 105.5 ml/min BUN/Creatinine Ratio 17.5 (10-20) Glucose 282 H (70-99) mg/dl Calcium 10.6 H (8.5-10.1) mg/dl Total Bilirubin 0.2 (0.2-1) mg/dl AST 25 (15-37) U/L ALT 76 (12-78) Alkaline Phosphatase 183 H D (45-117) U/L Troponin I < 0.015 (0-0.045) ng/ml C-Reactive Protein 3.76 H (0-0.29) mg/dl Total Protein 8.1 (6.4-8.2) gm/dl Albumin 3.3 L (3.4-5.0) gm/dl Globulin 4.8 H (2.5-4.0) gm/dl Albumin/Globulin Ratio 0.7 L (0.9-2) Lipase 185 (73-393) U/L Urine Color Urine Appearance (Clear) Urine pH (4.5-7.5) Ur Specific [place] (1.000-1.030) Urine Protein (Negative) Urine Glucose (UA) (Negative) Urine Ketones (Negative) Urine Blood (Negative) Urine Nitrite (Negative) Urine Bilirubin (Negative) Urine Urobilinogen (Negative) Ur Leukocyte Esterase (Negative) SARS-CoV-2, RNA, NAAT (NEGATIVE) 04/26/21 04/26/21 04/27/21 Range/Units 23:30 23:45 06:16 WBC (4.8-10.8) K/uL RBC (4.7-6.1) M/uL Hgb (14.0-18.0) g/dL Hct (42-52) % MCV (80-100) fL MCH (25-34) pg MCHC (32-36) g/dL RDW Std Deviation (36.4-46.3) fL RDW Coeff of Reuben (11.5-14.5) % Plt Count (130-400) K/uL MPV (7.4-10.4) fL Immature Gran % (Auto) % Neut % (Auto) % Lymph % (Auto) % [place] % (Auto) % Eos % (Auto) % Baso % (Auto) % Neut # (Auto) (1.4-6.5) K/uL Lymph # (Auto) (1.2-3.4) K/uL [place] # (Auto) (0.11-0.59) K/uL Eos # (Auto) (0-0.5) K/uL Baso # (Auto) (0-0.2) K/uL Immature Gran # (Auto) (0.00-0.02) K/uL ESR 74 H (0-15) mm/hr PT (9.0-12.0) Seconds INR (0.9-1.1) APTT (21.0-31.0) Seconds PTT Ratio Sodium (136-145) mmol/L Potassium (3.5-5.1) mmol/L Chloride (98-107) mmol/L Carbon Dioxide (21-32) mmol/L Anion Gap (3-11) BUN (7-18) mg/dl Creatinine (0.6-1.4) mg/dl Est Cr Clr Drug Dosing ml/min Est GFR ( Amer) ml/min Est GFR (Non-Af Amer) ml/min BUN/Creatinine Ratio (10-20) Glucose (70-99) mg/dl Calcium (8.5-10.1) mg/dl Total Bilirubin (0.2-1) mg/dl AST (15-37) U/L ALT (12-78) Alkaline Phosphatase (45-117) U/L Troponin I (0-0.045) ng/ml C-Reactive Protein (0-0.29) mg/dl Total Protein (6.4-8.2) gm/dl Albumin (3.4-5.0) gm/dl Globulin (2.5-4.0) gm/dl Albumin/Globulin Ratio (0.9-2) Lipase (73-393) U/L Urine Color Yellow Urine Appearance Clear (Clear) Urine pH 6.5 (4.5-7.5) Ur Specific [place] 1.026 (1.000-1.030) Urine Protein Negative (Negative) Urine Glucose (UA) 3+ H (Negative) Urine Ketones Negative (Negative) Urine Blood Negative (Negative) Urine Nitrite Negative (Negative) Urine Bilirubin Negative (Negative) Urine Urobilinogen Negative (Negative) Ur Leukocyte Esterase Negative (Negative) SARS-CoV-2, RNA, NAAT NEGATIVE (NEGATIVE) Administered Medications Discontinued Medications Gadobutrol (Gadobutrol 65ml Vial) 11 ml IV ONCE ONE Stop: 04/27/21 04:58 Last Admin: 04/27/21 04:58 Dose: 11 ml Documented by: [id number] Sodium Chloride (Nss) 500 mls @ 999 mls/hr IV .Q31M STA Stop: 04/26/21 23:53 Last Infusion: 04/27/21 00:44 Dose: 0 mls/hr Documented by: [id number] Admin: 04/26/21 23:49 Dose: 999 mls/hr Documented by: [id number] Cefepime HCl (Maxipime) 2,000 mg in 20 mls @ 5 mls/min IV NOW STA; Protocol Stop: 04/27/21 01:17 Last Admin: 04/27/21 02:13 Dose: 5 mls/min Documented by: [id number] Vancomycin HCl 1,750 mg/ (Sodium Chloride) 535 mls @ 200 mls/hr IV ONE STA Stop: 04/27/21 03:56 Last Infusion: 04/27/21 05:15 Dose: 0 mls/hr Documented by: [id number] Admin: 04/27/21 02:13 Dose: 200 mls/hr Documented by: [id number] Ioversol (Optiray 320 125ml) 121 ml IV ONCE ONE Stop: 04/27/21 00:39 Last Admin: 04/27/21 00:38 Dose: 1 ml Documented by: [id number] Morphine Sulfate (Morphine Sulfate 4 Mg/Ml 1 Ml Carp\Vial) 4 mg IV NOW STA Stop: 04/26/21 23:24 Last Admin: 04/26/21 23:45 Dose: 4 mg Documented by: [id number] Morphine Sulfate (Morphine Sulfate 4 Mg/Ml 1 Ml Carp\Vial) 4 mg IV NOW STA Stop: 04/27/21 06:10 Last Admin: 04/27/21 06:15 Dose: 4 mg Documented by: [id number] Ondansetron HCl (Ondansetron Inj 2 Mg/Ml 2 Ml Vial) 4 mg IV NOW STA Stop: 04/26/21 23:24 Last Admin: 04/26/21 23:45 Dose: 4 mg Documented by: [id number] Discharge Plan Visit Data Chief Complaint: Back Injury/Pain Stated Complaint: LOWER BACK PAIN ED Provider: Linden Graff Discharge Problem: Discitis of thoracic region, Acute osteomyelitis of thoracic spine Forms Stand Alone Forms: [facility] Prescriptions Prescriptions: No Action losartan 25 mg tablet 25 mg PO PM RF: 0 insulin lispro [Humalog U-100 Insulin] 100 unit/mL solution 12 unit subcut AC RF: 0 Lantus Solostar U-100 Insulin 100 unit/mL (3 mL) insulin pen 30 unit SUBCUT AMPM RF: 0 atorvastatin 20 mg tablet 20 mg PO HS RF: 0 cyclobenzaprine 10 mg tablet 10 mg PO TID PRN (Reason: Muscle Spasm) RF: 0 Referrals Referrals: Huey Miller DO [Primary Care Provider] -
[2021-04-26 23:50] LABS: Basophils # (auto) 0.02 K/uL (0-0.2); Basophils % (auto) 0.4 %; Eosinophils # (auto) 0.25 K/uL (0-0.5); Eosinophils % (auto) 4.4 %; Hemoglobin 12.5 g/dL (14.0-18.0); Immature Granulocytes # (auto) 0.04 K/uL (0.00-0.02); Immature Granulocytes % (auto) 0.7 %; Lymphocytes # (auto) 0.93 K/uL (1.2-3.4); Lymphocytes % (auto) 16.4 %; Mean Corpuscular Hemoglobin 27.1 pg (25-34); Mean Corpuscular Hgb Conc 32.1 g/dL (32-36); Mean Corpuscular Volume 84.6 fL (80-100); Mean Platelet Volume 10.6 fL (7.4-10.4); Monocytes # (auto) 0.84 K/uL (0.11-0.59); Monocytes % (auto) 14.8 %; Neutrophils % (auto) 63.3 %; Platelet Count 251 K/uL (130-400); RDW Coefficient of Variation 13.2 % (11.5-14.5); RDW Standard Deviation 40.9 fL (36.4-46.3); Red Blood Count 4.61 M/uL (4.7-6.1); White Blood Count 5.68 K/uL (4.8-10.8)
[2021-04-26 23:55] LABS: Appearance Urine Clear (Clear); Bilirubin Urine Negative (Negative); Blood Urine Negative (Negative); Color Urine Yellow; Glucose Urine UA 3+ (Negative); Ketones Urine Negative (Negative); Leukocyte Esterase Urine Negative (Negative); Nitrite Urine Negative (Negative); Protein Urine Negative (Negative); Specific Gravity Urine 1.026 (1.000-1.030); Urobilinogen Urine Negative (Negative); pH Urine 6.5 (4.5-7.5)
[2021-04-27] LABS: INR 0.9 (0.9-1.1); Partial Thromboplastin Ratio 0.9; Partial Thromboplastin Time 24.5 Seconds (21.0-31.0); Prothrombin Time 9.3 Seconds (9.0-12.0)
[2021-04-27 00:08] LABS: Alanine Aminotransferase 76 (12-78); Albumin Level 3.3 gm/dl (3.4-5.0); Aspartate Aminotransferase 25 U/L (15-37); BUN Creatinine Ratio 17.5 (10-20); Blood Urea Nitrogen 16 mg/dl (7-18); Calcium 10.6 mg/dl (8.5-10.1); Carbon Dioxide 29 mmol/L (21-32); Chloride 102 mmol/L (98-107); Creatinine Clr Calc Pharmacy 139.6 ml/min; Est GFR (African American) 122.2 ml/min; Est GFR (Non-African American) 105.5 ml/min; Glucose 282 mg/dl (70-99); Lipase 185 U/L (73-393); Potassium 4.2 mmol/L (3.5-5.1); Sodium 135 mmol/L (136-145)
[2021-04-27 00:13] LABS: Albumin Globulin Ratio 0.7 (0.9-2); Alkaline Phosphatase 183 U/L (45-117); Bilirubin,Total 0.2 mg/dl (0.2-1); Globulin 4.8 gm/dl (2.5-4.0); Total Protein 8.1 gm/dl (6.4-8.2); Troponin I < 0.015 ng/ml (0-0.045)
[2021-04-27] MEDS ORDERED: OPTIRAY 320 125ml IV ONE (00:38)
[2021-04-27] MEDS ORDERED: VANCOMYCIN CONSULT ACTIVE PRN ×2 (01:09→10:13)
[2021-04-27] MEDS ORDERED: CEFEPIME 2,000 MG in SYRINGE 0 ML IV STA (01:10)
[2021-04-27] MEDS ORDERED: CEFEPIME 2,000 MG/20 ML VIAL IV STA (01:14)
[2021-04-27] MEDS ORDERED: VANCOMYCIN HCL 1,750 MG in SODIUM CHLORIDE 0.9% 500 ML IV SCH (01:15)
[2021-04-27] MEDS ORDERED: VANCOMYCIN HCL 1,750 MG in SODIUM CHLORIDE 0.9% 500 ML IV STA (01:16)
[2021-04-27 03:50] LABS: C Reactive Protein 3.76 mg/dl (0-0.29)
[2021-04-27] MEDS ORDERED: GADOBUTROL 65ML VIAL IV ONE (04:57)
[2021-04-27] MEDS ORDERED: MoRPHine SULFATE 4 MG/ML 1 ML CARP\\VIAL IV STA (06:09)
--- NOTE | 2021-04-27 07:02 | History & Physical Report ---
Date of Service April 27, 2021 Assessment & Plan (1) Acute osteomyelitis of thoracic spine: Plan: 40yo male with DM-I, HTN, HLP presenting with 3-4 weeks of progressive back pain. Found with osteomyelitis and discitis of T7 and T8. Possibly spread from cutaneous abscess that patient had recently. He is afebrile, HD stable, nontoxic in appearance. No neurological deficits. ER has contacted several institutions to include [facility] re: transfer. He is on a waiting list for these hospitals but it is anticipated to be days before a bed is available. -Admit to medical -Follow blood cultures sent from ER -Continue broad spectrum antibiotics - Vancomycin and Cefepime -Pain control with Tylenol, Morphine PRN -Flexeril PRN spasm -Neuro checks q shift -Orthopedic consultation - Dr. Vega - assistance appreciated (2) Discitis of thoracic region: Plan: As above. No epidural abscess present. No neurological signs or symptoms -Broad spectrum antibiotics -Ortho consultation (3) Diabetes type I: Plan: Elevated blood sugar presently -Continue Lantus 30u BID -ISS -Goal blood sugar 100 - 140 (4) Hypertension: Plan: Chronic. Mildly elevated at present at 141/77 -Continue Cozaar (5) Dyslipidemia: Plan: Chronic -Continue Atorvastatin 20mg po qHS Plan: F/E/N - Heplock. Electrolytes WNL. Type I/Carb count diet as tolerated Ppx - no chemoppx Code- Full per discussion with patient Dispo -Admit to medical History of Present Illness Chief Complaint: back pain Primary Care Provider: Huey Miller DO Isaiah Soria is a 40yo male with Type I DM, HTN, HLP presenting with back pain. Pain has been persistent and progressive for the last 3-4 weeks. Pain is in his lower back with radiation to bilateral flanks, occasionally to his anterior abdomen. He has been seen in the ER several times without definitive diagnosis. He has been taking Advil and Tylenol with some relief. Also completed a course of steroids. He denies fever, chills, sweats, rigors, malaise. Denies chest pain, SOB, abdominal pain, nausea, vomiting, diarrhea No neurological complaints - denies numbness, tingling, weakness He has been experiencing frequent and severe muscle spasms and has been taking medication for that ER Course: Morphine, Zofran, Vancomycin, Cefepime, NSS x 500mL Allergies Allergy/AdvReac Type Severity Reaction Status Date / Time No Known Allergies Allergy Unverified 04/27/21 01:53 Home Medications Medication Instructions Recorded Confirmed Type atorvastatin 20 mg tablet 20 mg PO HS 03/09/20 04/27/21 History insulin glargine 100 unit/mL (3 30 unit SUBCUT AMPM 03/09/20 04/27/21 History mL) subcutaneous pen (Lantus Solostar U-100 Insulin) insulin lispro 100 unit/mL 12 unit SUBCUT AC 03/09/20 04/27/21 History subcutaneous solution (Humalog U-100 Insulin) losartan 25 mg tablet 25 mg PO PM 03/09/20 04/27/21 History cyclobenzaprine 10 mg tablet 10 mg PO TID PRN 04/27/21 04/27/21 History Past Med/Surg History Medical History (Updated 04/27/21 @ 03:45 by Linden Graff DO) Diabetes type I Dyslipidemia Hypertension Surgical History History of appendectomy Social History Smoking Status: Never smoker Preferred Language: [place]ill[place] Feels Safe at Home: Yes Review of Systems Review of Systems: All systems reviewed & are unremarkable except as noted in HPI & below Physical Exam Physical Exam: General: patient resting comfortably, NAD, non-toxic in appearance, AA&O x 4 Skin: warm, dry, intact, no rashes or lesions HEENT: NC/AT, PERRL, EOMI, anicteric sclera, conjunctiva without injection, external ear normal to inspection and nontender, nares patent, moist mucus membranes, dentition intact, no oropharyngeal lesions, neck supple, trachea midline, no LAD, no thyromegaly, no JVD Heart: +S1/S2, regular, no m/r/g Lungs: equal air entry bilaterally, no rales/rhonchi/wheezes Abd: +BS, soft, NT/ND, no masses/organomegaly/ascites. Reproducible pain at appx T12 and lumbar region Ext: warm, 2+ pulses in UE/LE bilaterally, no clubbing/cyanosis or edema Neuro: nonfocal, patient AA&O x 4, speech intact, no facial droop, moving all extremities on command with equal strength 5/5 Results & Data Results & Data ([facility]) Vital Signs (Past 12 Hours) Vital Signs Temp Pulse Pulse Resp BP BP Pulse Ox 04/27/21 06:00 82 15 141/77 H 94 04/27/21 04:00 88 16 132/93 99 04/27/21 02:00 91 H 16 140/96 96 04/27/21 00:43 94 H 16 125/89 96 04/26/21 23:23 98 H 16 96 04/26/21 23:13 36.6 C 101 H 20 156/83 H 98 04/26/21 23:04 98 H 16 141/92 H 96 Laboratory Results Laboratory Results WBC 5.68 K/uL (4.8-10.8) 04/26/21 23:30 RBC 4.61 M/uL (4.7-6.1) L 04/26/21 23:30 Hgb 12.5 g/dL (14.0-18.0) L 04/26/21 23:30 Hct 39.0 % (42-52) L 04/26/21 23:30 MCV 84.6 fL (80-100) 04/26/21 23:30 MCH 27.1 pg (25-34) 04/26/21 23:30 MCHC 32.1 g/dL (32-36) 04/26/21 23:30 RDW Std Deviation 40.9 fL (36.4-46.3) 04/26/21 23:30 RDW Coeff of Reuben 13.2 % (11.5-14.5) 04/26/21 23:30 Plt Count 251 K/uL (130-400) 04/26/21 23:30 MPV 10.6 fL (7.4-10.4) H 04/26/21 23:30 Immature Gran % (Auto) 0.7 % 04/26/21 23:30 Neut % (Auto) 63.3 % 04/26/21 23:30 Lymph % (Auto) 16.4 % 04/26/21 23:30 [place] % (Auto) 14.8 % 04/26/21 23:30 Eos % (Auto) 4.4 % 04/26/21 23:30 Baso % (Auto) 0.4 % 04/26/21 23:30 Neut # (Auto) 3.60 K/uL (1.4-6.5) 04/26/21 23:30 Lymph # (Auto) 0.93 K/uL (1.2-3.4) L 04/26/21 23:30 [place] # (Auto) 0.84 K/uL (0.11-0.59) H 04/26/21 23:30 Eos # (Auto) 0.25 K/uL (0-0.5) 04/26/21 23:30 Baso # (Auto) 0.02 K/uL (0-0.2) 04/26/21 23:30 Immature Gran # (Auto) 0.04 K/uL (0.00-0.02) H 04/26/21 23:30 ESR 74 mm/hr (0-15) H 04/26/21 23:30 PT 9.3 Seconds (9.0-12.0) 04/26/21 23:30 INR 0.9 (0.9-1.1) 04/26/21 23:30 APTT 24.5 Seconds (21.0-31.0) 04/26/21 23:30 PTT Ratio 0.9 04/26/21 23:30 Sodium 135 mmol/L (136-145) L 04/26/21 23:30 Potassium 4.2 mmol/L (3.5-5.1) 04/26/21 23:30 Chloride 102 mmol/L (98-107) 04/26/21 23:30 Carbon Dioxide 29 mmol/L (21-32) 04/26/21 23:30 Anion Gap 4.0 (3-11) 04/26/21 23:30 BUN 16 mg/dl (7-18) 04/26/21 23:30 Creatinine 0.89 mg/dl (0.6-1.4) 04/26/21 23:30 Est Cr Clr Drug Dosing 139.6 ml/min 04/26/21 23:30 Est GFR ( Amer) 122.2 ml/min 04/26/21 23:30 Est GFR (Non-Af Amer) 105.5 ml/min 04/26/21 23:30 BUN/Creatinine Ratio 17.5 (10-20) 04/26/21 23:30 Glucose 282 mg/dl (70-99) H 04/26/21 23:30 Calcium 10.6 mg/dl (8.5-10.1) H 04/26/21 23:30 Total Bilirubin 0.2 mg/dl (0.2-1) 04/26/21 23:30 AST 25 U/L (15-37) 04/26/21 23:30 ALT 76 (12-78) 04/26/21 23:30 Alkaline Phosphatase 183 U/L (45-117) H D 04/26/21 23:30 Troponin I < 0.015 ng/ml (0-0.045) 04/26/21 23:30 C-Reactive Protein 3.76 mg/dl (0-0.29) H 04/26/21 23:30 Total Protein 8.1 gm/dl (6.4-8.2) 04/26/21 23:30 Albumin 3.3 gm/dl (3.4-5.0) L 04/26/21 23:30 Globulin 4.8 gm/dl (2.5-4.0) H 04/26/21 23:30 Albumin/Globulin Ratio 0.7 (0.9-2) L 04/26/21 23:30 Lipase 185 U/L (73-393) 04/26/21 23:30 Urine Color Yellow 04/26/21 23:45 Urine Appearance Clear (Clear) 04/26/21 23:45 Urine pH 6.5 (4.5-7.5) 04/26/21 23:45 Ur Specific [place] 1.026 (1.000-1.030) 04/26/21 23:45 Urine Protein Negative (Negative) 04/26/21 23:45 Urine Glucose (UA) 3+ (Negative) H 04/26/21 23:45 Urine Ketones Negative (Negative) 04/26/21 23:45 Urine Blood Negative (Negative) 04/26/21 23:45 Urine Nitrite Negative (Negative) 04/26/21 23:45 Urine Bilirubin Negative (Negative) 04/26/21 23:45 Urine Urobilinogen Negative (Negative) 04/26/21 23:45 Ur Leukocyte Esterase Negative (Negative) 04/26/21 23:45 SARS-CoV-2, RNA, NAAT NEGATIVE (NEGATIVE) 04/27/21 06:16 Diagnostic Findings Thoracic Spine MRI - Per STAT rad - abnormal decreased T1 signal and enhancement throughout the T8 vertebral body also involving the inferior half of T7 in the adjacent soft tissues consistent with discitis/osteomyelitis. No epidural abscess is seen. The remaining thoracic levels appear unremarkable. No disc bulge or hernaiation identified. The thecal sac is well appearing. The cord signal is normal. Code Status & VTE Plan VTE Prophylaxis Plan VTE Prophylaxis will be ordered: No PG Care Time/CCT Total # of Minutes Spent Total Time Spent with Patient: Total time spent is greater than 50% in coordination of care (as documented) at patient's floor/unit and/or counseling patient: Coding Level of Care Code 02671 Initial Inpt Care Lvl 3 Diagnoses Diabetes type I E10.9 Diabetes mellitus complication status: without complication Hypertension I10 Dyslipidemia E78.5 Acute osteomyelitis of thoracic spine M46.24 Discitis of thoracic region M46.44 (1) Diabetes type I Diabetes mellitus complication status: without complication Qualified Code(s): E10.9 - Type 1 diabetes mellitus without complications
--- NOTE | 2021-04-27 07:20 | Magnetic Resonance Report ---
MR thoracic spine wo/w con CLINICAL HISTORY: Eval osteo/discitis at T8/T9 on CT TECHNIQUE: Multiplanar sequences through the thoracic spine were obtained, without intravenous contra st. Comparison: None available at the time of this dictation. FINDINGS: The alignment is anatomical. There is no significant disc bulge or herniation. The spinal canal and n eural foramina are patent. The intervertebral discs are normal in height and signal. There is abnorma l decreased T1 signal and enhancement from T8 in the inferior half of T7, as well as bony edema angel tible with osteomyelitis. There is surrounding soft tissue swelling and involving the anterior aspect of the T7-T8 disc as well. The spinal cord is normal in signal intensity and there is no evidence of cord contusion. There is no evidence of an extradural, intradural, extramedullary or intramedullary lesion. The spinal ligaments are intact, without evidence of disruption or abnormal signal intensity. IMPRESSION: Findings are compatible with osteomyelitis/discitis at T8 and the inferior T7. No epidural abscess is seen. ACT 112: Negative or not required by law. Electronically signed by: Navdeep Dumont M.D. 04/27/2021 7:19 AM
--- NOTE | 2021-04-27 07:24 | CT Scan Report ---
CT angio chest PE protocol CLINICAL HISTORY: b/l flank pain eval for PE TECHNIQUE: Multidetector row helical CT of the chest was performed. Coronal and sagittal reformations were obtained. Automated dose lowering techniques and/or adjustment according to patient size were u tilized for this exam. Comparison: Comparison is made to CT chest 04/07/2021 FINDINGS: Lungs and pleura: Again noted are linear densities in the lungs compatible with atelectasis versus sc arring. Heart and pericardium: Heart size is normal. No pericardial effusion. Vessels: No evidence of pulmonary embolism. Mediastinum and augustina: Unremarkable. Chest wall and lower neck: 1.3 cm thyroid nodule seen on the left. Abdomen: Unremarkable. Bones: Lucency is seen at T7-T8 corresponding to findings of osteomyelitis on MRI thoracic spine perf ormed same day. IMPRESSION: No evidence of pulmonary embolism. Please see MRI thoracic spine performed same day for detailed find ings of osteomyelitis. ACT 112: Negative or not required by law. Electronically signed by: Navdeep Dumont M.D. 04/27/2021 7:22 AM
--- NOTE | 2021-04-27 07:31 | CT Scan Report ---
CT abd pelvis IV con only CLINICAL HISTORY: b/l flank pain TECHNIQUE: Helical axial images of the abdomen and pelvis were obtained and displayed. Automated dose lowering techniques and/or adjustment according to patient size were utilized for this exam. This e xam was performed with intravenous contrast. COMPARISON: None available at the time of this dictation. FINDINGS: Lower chest: For findings above the diaphragm, please see CT chest performed same day. Liver: Unremarkable. No focal lesions are seen. Gallbladder and biliary tree: No calcified gallstones. Normal caliber wall. No intra- or extrahepatic biliary ductal dilation. Pancreas: Unremarkable, no focal lesions. Spleen: Splenule is incidentally noted. Adrenals: Unremarkable. Kidneys and ureters: Subcentimeter hypodensities are too small to characterize. Bladder: Limited evaluation due to underdistention. Reproductive organs: Calcifications of vas deferens noted bilaterally. Bowel: Unremarkable. Lymph nodes Retroperitoneal: Unremarkable. Mesenteric: Unremarkable. Pelvic: Unremarkable. Peritoneum: Normal Vessels: Unremarkable. Abdominal wall: A fat-containing umbilical hernia is seen. Bones: Unremarkable apart from a lucency noted in T7-T8, compatible with osteomyelitis seen on MRI th oracic spine performed same day IMPRESSION: No acute abnormalities. ACT 112: Negative or not required by law. Electronically signed by: Navdeep Dumont M.D. 04/27/2021 7:29 AM
[2021-04-27] MEDS ORDERED: CARBOHYDRATES FOR HYPOGLYCEMIA PO PRN (10:13)
[2021-04-27] MEDS ORDERED: GLUCAGON FOR INJ 1 MG VIAL SQ PRN (10:13)
[2021-04-27] MEDS ORDERED: DEXTROSE 50% 50 ML SYRINGE IV PRN (10:13)
[2021-04-27] MEDS ORDERED: ONDANSETRON INJ 2 MG/ML 2 ML VIAL IV PRN (10:13)
[2021-04-27] MEDS ORDERED: GLUCOSE 10 TABS/TUBE PO PRN (10:13)
[2021-04-27] MEDS ORDERED: GLUCOSE 40% GEL 15 GM TUBE PO PRN (10:13)
[2021-04-27] MEDS: INSULIN GLARGINE SOLOSTAR 100 UNITS/ML 3 ML PEN SQ SCH ×2 (10:56→22:03)
[2021-04-27] MEDS: INSULIN ASPART PER UNIT SC SCH ×4 (10:56→22:09)
--- NOTE | 2021-04-27 10:59 | Pharmacy Report ---
Pharmacy Vanc AUC Short Note - Date of Service April 27, 2021 - Assessment & Plan Assessment * 40 year old M receiving VANCOMYCIN + CEFEPIME IV for treatment of discitis / osteomyelitis T7 and T8. Pharmacy has been consulted to dose vancomycin. Patient does have h/o recent cutaneous abscess. * Pertinent microbiologic data includes: blood cultures pending * Day # 1 of antimicrobial therapy. Plan Vancomycin * AUC/ROSIE is the preferred PK/PD target for vancomycin * AUC guided dosing is effective and associated with decreased risk of nephrotoxicity compared to traditional trough targets * Patient received 1750mg IV loading dose overnight, will begin 1500mg (~13mg /kg) IV Q 12 hours as this dose is predicted to achieve target AUC/ROSIE of 400- 600 mg/L.hr and may be associated with a 14 % risk of nephrotoxicity * Will check level w/ 4th dose to assure targets are being met Pharmacy will continue to follow and will adjust dose/frequency as necessary. Thank you.
[2021-04-27] MEDS: CEFEPIME 2,000 MG in SYRINGE 0 ML IV SCH ×2 (12:04→22:02)
[2021-04-27] MEDS: VANCOMYCIN HCL 1,500 MG in SODIUM CHLORIDE 0.9% 500 ML IV SCH ×2 (12:25→22:02)
[2021-04-27] MEDS: LOSARTAN POTASSIUM 25 MG TAB PO SCH (20:35)
[2021-04-27] MEDS: ATORVASTATIN 20 MG TAB PO SCH (20:35)
[2021-04-27] MEDS: MoRPHine SULFATE 2 MG/ML CARP IV PRN (20:36)
--- NOTE | 2021-04-27 22:36 | Electrocardiogram Report ---
Test Reason : Blood Pressure : / mmHG Vent. Rate : 097 BPM Atrial Rate : 097 BPM P-R Int : 176 ms QRS Dur : 082 ms QT Int : 320 ms P-R-T Axes : 049 022 046 degrees QTc Int : 406 ms Normal sinus rhythm Normal ECG No previous ECGs available Confirmed by Eduard Rothman ([id number]) on 04/27/2021 10:35:44 PM Referred By: REFERRED SELF Confirmed By:Eduard Rothman
[2021-04-28] MEDS: MoRPHine SULFATE 2 MG/ML CARP IV PRN ×3 (00:47→23:22)
[2021-04-28] MEDS: CEFEPIME 2,000 MG in SYRINGE 0 ML IV SCH ×3 (05:54→21:02)
[2021-04-28 07:05] LABS: Creatinine Clr Calc Pharmacy 157.2 ml/min; Est GFR (African American) 128.4 ml/min; Est GFR (Non-African American) 110.8 ml/min
[2021-04-28] MEDS: INSULIN ASPART PER UNIT SC SCH ×4 (08:49→20:57)
[2021-04-28] MEDS: INSULIN GLARGINE SOLOSTAR 100 UNITS/ML 3 ML PEN SQ SCH ×2 (08:50→20:54)
[2021-04-28] MEDS ORDERED: PNEUMOCOCCAL Polysaccharide Vaccine 25mcg/0.5mL vial/Syr IM ONE (09:00)
[2021-04-28] MEDS ORDERED: Flu Vaccine (Fluarix) 0.5mL SYR (Standard Dose) IM ONE (09:00)
[2021-04-28 09:25] LABS: Basophils # (auto) 0.02 K/uL (0-0.2); Basophils % (auto) 0.4 %; Eosinophils % (auto) 7.8 %; Hematocrit (blood only) 37.6 % (42-52); Immature Granulocytes # (auto) 0.04 K/uL (0.00-0.02); Immature Granulocytes % (auto) 0.8 %; Lymphocytes # (auto) 0.67 K/uL (1.2-3.4); Mean Corpuscular Hemoglobin 26.8 pg (25-34); Mean Corpuscular Volume 83.9 fL (80-100); Mean Platelet Volume 10.3 fL (7.4-10.4); Monocytes # (auto) 0.74 K/uL (0.11-0.59); Monocytes % (auto) 14.3 %; Neutrophils # (auto) 3.29 K/uL (1.4-6.5); Neutrophils % (auto) 63.7 %; Platelet Count 229 K/uL (130-400); RDW Standard Deviation 39.5 fL (36.4-46.3); Red Blood Count 4.48 M/uL (4.7-6.1); White Blood Count 5.16 K/uL (4.8-10.8)
[2021-04-28 09:42] LABS: BUN Creatinine Ratio 16.6 (10-20); Calcium 9.6 mg/dl (8.5-10.1); Est GFR (African American) 118.5 ml/min; Est GFR (Non-African American) 102.2 ml/min; Potassium 4.4 mmol/L (3.5-5.1)
[2021-04-28 10:17] LABS: Mean Corpuscular Hgb Conc 31.9 g/dL (32-36)
--- NOTE | 2021-04-28 10:25 | Orthopedic Consultation ---
Date of Consultation April 28, 2021 Assessment & Plan (1) Acute osteomyelitis of thoracic spine: Assessment T7-T8 discitis osteomyelitis. Plan and lengthy discussion today with the patient regarding his diagnosis and treatment plan. Fortunately blood cultures are are positive giving us the most likely bacterial cause for his infection. This would allow us to avoid any biopsy of the affected thoracic region. Events as the patient that in most cases IV antibiotics are adequate enough to treat his disease we can avoid any surgical intervention. In the interim I allow him to be up and ambulate as tolerated. I will ask him to avoid lifting anything more than 5 pounds. History of Present Illness Reason for Consultation: Osteomyelitis of thoracic spine Attending Physician: Navdeep Merlos DO History of Present Illness This a very pleasant 40 old male who presents with chronic worsening thoracic back pain. Imaging yesterday did demonstrate evidence of a T7-T8 discitis osteomyelitis. He states today that his continues to have back pain. Denies any numbness and tingling in the upper or lower extremities. Denies any strength deficits. Allergies Allergy/AdvReac Type Severity Reaction Status Date / Time No Known Allergies Allergy Unverified 04/27/21 01:53 Home Medications Medication Instructions Recorded Confirmed Type atorvastatin 20 mg tablet 20 mg PO HS 03/09/20 04/27/21 History insulin glargine 100 unit/mL (3 30 unit SUBCUT AMPM 03/09/20 04/27/21 History mL) subcutaneous pen (Lantus Solostar U-100 Insulin) insulin lispro 100 unit/mL 12 unit SUBCUT AC 03/09/20 04/27/21 History subcutaneous solution (Humalog U-100 Insulin) losartan 25 mg tablet 25 mg PO PM 03/09/20 04/27/21 History cyclobenzaprine 10 mg tablet 10 mg PO TID PRN 04/27/21 04/27/21 History Patient History Medical History (Updated 04/27/21 @ 03:45 by Linden Graff DO) Diabetes type I Dyslipidemia Hypertension Surgical History History of appendectomy Social History Smoking Status: Never smoker Second Hand Exposure: No; Hx Alcohol Use: No Hx Substance Use: No Preferred Language: Armenian Communication Ability: Effective 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 Is good strength testing the upper extremities. Results & Data ([facility]) Vital Signs (Past 12 Hours) Vital Signs Temp Pulse Resp BP Pulse Ox 04/28/21 07:54 36.6 C 84 18 110/70 95 04/27/21 22:52 36.9 C 92 H 20 146/84 H 95
[2021-04-28] MEDS: VANCOMYCIN HCL 1,500 MG in SODIUM CHLORIDE 0.9% 500 ML IV SCH ×2 (10:43→23:14)
--- NOTE | 2021-04-28 16:29 | Hospitalist Progress Note ---
Date of Service April 28, 2021 Assessment & Plan (1) Acute osteomyelitis of thoracic spine: Plan: 40yo male with DM-I, HTN, HLP presenting with 3-4 weeks of progressive back pain. Found with osteomyelitis and discitis of T7 and T8. Possibly spread from cutaneous abscess that patient had recently. He is afebrile, HD stable, nontoxic in appearance. No neurological deficits. -Blood cultures ordered from ED, preliminary positive growth of staph, await final culture data -Continue broad spectrum antibiotics - Vancomycin and Cefepime for now -Pain control with Tylenol, Morphine PRN -Flexeril PRN spasm -Neuro checks q shift -Orthopedic consultation placed to Dr. Vega - assistance appreciated - Recommending IV abx, no plans for surgical intervention at this time -ER has contacted several institutions to include [facility] re: transfer for neurosurgery. Pt's family requesting if transfer is necessary to be [place]. -I have personally reached out to do a phone consultation with [facility] business solution analyst neurosurgery team to determine if transfer is necessary -Pt will need roughly 8 weeks of IV abx, cannot place PICC line until blood cultures are clear -Obtain echo to look for vegetation d/t staph bacteremia -Will need outpatient f/u with ID (2) Bacteremia: Plan: -Empiric IV abx -2D Echocardiogram -Repeat blood cultures in 48 hours (12/20 AM) (3) Discitis of thoracic region: Plan: As above. No epidural abscess present. No neurological signs or symptoms -Broad spectrum antibiotics -Ortho consultation (4) Diabetes type I: Plan: Elevated blood sugar presently -Continue Lantus 30u BID -SSI -Goal blood sugar 100 - 140 -Diabetic diet -Hemoglobin a1c (5) Hypertension: Plan: Chronic. Mildly elevated at present at 141/77 -Continue Cozaar (6) Dyslipidemia: Plan: Chronic -Continue Atorvastatin 20mg po qHS (7) Obesity (BMI 30-39.9): Plan: -Recommend dietary changes -Incorporate exercise into regimen when acute issues resolve Plan: Ppx - Lovenox 40mg sq daily Code- Full per discussion with patient Updated pt's momLara on above plan. Admission and Anticipated Discharge Date Admission Date: April 27, 2021 Subjective Mr. Soria was seen on rounds this morning. Pt was hospitalized 04/27 for acute discitis and osteomyelitis of thoracic spine. Primary presenting complaint was back pain. He was empirically started on Cefepime and Vancomycin. Blood cultures ordered and are preliminarily positive in all 4 tubes for staph. He denies recreational IV drug use. He has no complaints at present, denies chest pain, HUGHES, n/v/d, f/c, headache, or gu symptoms. Denies numbness/tingling, focal weakness in his legs. He did reports a few weeks ago he had a superficial abscess on his upper back that his mother drained for him at home. Review of Systems Review of Systems: CONSTITUTIONAL: Denies weight loss/gain, fever and chills, fatigue, malaise, generalized weakness. HEENT: Denies changes in vision and hearing. RESPIRATORY: Denies SOB, cough, wheezing. CV: Denies palpitations, CP, lower extremity edema, orthopnea, PND. GI: Denies abdominal pain, nausea, vomiting and diarrhea. : Denies dysuria and urinary frequency, urgency, hesitancy. MUSCULOSKELETAL: +back pain. Denies myalgia and joint pain. SKIN: Denies rash and pruritus. NEUROLOGICAL: Denies headache, syncope, focal weakness, numbness, tingling. PSYCHIATRIC: Denies recent changes in mood. Denies anxiety and depression. Physical Exam Physical Exam: GENERAL: 40 yo obese WM. NAD. LUNGS: CTAB. No W/R/R. CARDIOVASCULAR: RRR. No M/G/R. ABDOMEN: Soft, NT, BS normal x 4 quad. EXTREMITIES: No edema. Non-tender. Peripheral pulses +2/4. No altered sensation. NEUROLOGIC: A&O x3. No focal neurological deficits. CN II-XII grossly intact. PSYCHIATRIC: Cooperative. Appropriate mood and affect. SKIN: Warm, dry, intact. No rashes or lesions. Results & Data Results & Data ([facility]) Vital Signs (Past 12 Hours) Vital Signs Temp Pulse Resp BP Pulse Ox 04/28/21 16:15 36.9 C 101 H 18 141/84 H 94 04/28/21 07:54 36.6 C 84 18 110/70 95 Laboratory Results 04/28/21 09:14 04/28/21 09:14 Spec: [id number] Collected: 04/27/21 Received: 04/27/[address]: Linden Graff DO Source: Blood OV Order: Ordered: Blood Culture Comments: Comment Default is separate sites, same time Procedure Result Verified Site Blood Culture Aerobic Preliminary 04/28/21 Organism 1 Staphylococcus species Sens No Sensitivities to Follow Blood MRSA PCR Performed If viewing in EMR, results available under LAB Serology tab. Please see culture number [id number] for sensitivities. Blood Culture Anaerobic Preliminary 04/28/21 Organism 1 Staphylococcus species Sens No Sensitivities to Follow Phoned positive Blood Culture Gram Stain report to ER (JOSÉ MIGUEL KEY) on 04/27/21 at 1440 [place] [id number] [id number]. Diagnostic Findings Chest CTA 04/26/21 23:23 CT angio chest PE protocol CLINICAL HISTORY: b/l flank pain eval for PE TECHNIQUE: Multidetector row helical CT of the chest was performed. Coronal and sagittal reformations were obtained. Automated dose lowering techniques and/or adjustment according to patient size were utilized for this exam. Comparison: Comparison is made to CT chest 04/07/2021 FINDINGS: Lungs and pleura: Again noted are linear densities in the lungs compatible with atelectasis versus scarring. Heart and pericardium: Heart size is normal. No pericardial effusion. Vessels: No evidence of pulmonary embolism. Mediastinum and augustina: Unremarkable. Chest wall and lower neck: 1.3 cm thyroid nodule seen on the left. Abdomen: Unremarkable. Bones: Lucency is seen at T7-T8 corresponding to findings of osteomyelitis on MRI thoracic spine performed same day. IMPRESSION: No evidence of pulmonary embolism. Please see MRI thoracic spine performed same day for detailed findings of osteomyelitis. ACT 112: Negative or not required by law. Electronically signed by: Navdeep Dumont M.D. 04/27/2021 7:22 AM Abdomen/Pelvis CT 04/26/21 23:24 CT abd pelvis IV con only CLINICAL HISTORY: b/l flank pain TECHNIQUE: Helical axial images of the abdomen and pelvis were obtained and displayed. Automated dose lowering techniques and/or adjustment according to patient size were utilized for this exam. This exam was performed with intravenous contrast. COMPARISON: None available at the time of this dictation. FINDINGS: Lower chest: For findings above the diaphragm, please see CT chest performed same day. Liver: Unremarkable. No focal lesions are seen. Gallbladder and biliary tree: No calcified gallstones. Normal caliber wall. No intra- or extrahepatic biliary ductal dilation. Pancreas: Unremarkable, no focal lesions. Spleen: Splenule is incidentally noted. Adrenals: Unremarkable. Kidneys and ureters: Subcentimeter hypodensities are too small to characterize. Bladder: Limited evaluation due to underdistention. Reproductive organs: Calcifications of vas deferens noted bilaterally. Bowel: Unremarkable. Lymph nodes Retroperitoneal: Unremarkable. Mesenteric: Unremarkable. Pelvic: Unremarkable. Peritoneum: Normal Vessels: Unremarkable. Abdominal wall: A fat-containing umbilical hernia is seen. Bones: Unremarkable apart from a lucency noted in T7-T8, compatible with osteomyelitis seen on MRI thoracic spine performed same day IMPRESSION: No acute abnormalities. ACT 112: Negative or not required by law. Electronically signed by: Navdeep Dumont M.D. 04/27/2021 7:29 AM Thoracic Spine MRI 04/27/21 06:30 MR thoracic spine wo/w con CLINICAL HISTORY: Eval osteo/discitis at T8/T9 on CT TECHNIQUE: Multiplanar sequences through the thoracic spine were obtained, without intravenous contrast. Comparison: None available at the time of this dictation. FINDINGS: The alignment is anatomical. There is no significant disc bulge or herniation. The spinal canal and neural foramina are patent. The intervertebral discs are normal in height and signal. There is abnormal decreased T1 signal and enhancement from T8 in the inferior half of T7, as well as bony edema compatible with osteomyelitis. There is surrounding soft tissue swelling and involving the anterior aspect of the T7-T8 disc as well. The spinal cord is normal in signal intensity and there is no evidence of cord contusion. There is no evidence of an extradural, intradural, extramedullary or intramedullary lesion. The spinal ligaments are intact, without evidence of disruption or abnormal signal intensity. IMPRESSION: Findings are compatible with osteomyelitis/discitis at T8 and the inferior T7. No epidural abscess is seen. ACT 112: Negative or not required by law. Electronically signed by: Navdeep Dumont M.D. 04/27/2021 7:19 AM PG Care Time/CCT Total # of Minutes Spent Total Time Spent with Patient: Total time spent is greater than 50% in coordination of care (as documented) at patient's floor/unit and/or counseling patient: Coding Level of Care Code 09048 Subseq Hosp Care Lvl 3 Diagnoses Acute osteomyelitis of thoracic spine M46.24 Discitis of thoracic region M46.44 Diabetes type I E10.9 Diabetes mellitus complication status: without complication Hypertension I10 Dyslipidemia E78.5 Bacteremia R78.81 Obesity (BMI 30-39.9) E66.9 (1) Diabetes type I Diabetes mellitus complication status: without complication Qualified C ode(s): E10.9 - Type 1 diabetes mellitus without complications
[2021-04-28] MEDS: LOSARTAN POTASSIUM 25 MG TAB PO SCH (20:54)
[2021-04-28] MEDS: ATORVASTATIN 20 MG TAB PO SCH (20:54)
[2021-04-28] MEDS ORDERED: VANCOMYCIN TROUGH ONE (22:30)
[2021-04-29] MEDS: CYCLOBENZAPRINE HCL 10 MG TAB PO PRN ×2 (01:20→23:54)
[2021-04-29] MEDS: MoRPHine SULFATE 2 MG/ML CARP IV PRN (04:07)
[2021-04-29] MEDS: CEFEPIME 2,000 MG in SYRINGE 0 ML IV SCH (05:40)
[2021-04-29 05:57] LABS: Basophils # (auto) 0.02 K/uL (0-0.2); Basophils % (auto) 0.3 %; Eosinophils % (auto) 8.7 %; Hemoglobin 11.2 g/dL (14.0-18.0); Immature Granulocytes # (auto) 0.04 K/uL (0.00-0.02); Immature Granulocytes % (auto) 0.7 %; Lymphocytes # (auto) 1.08 K/uL (1.2-3.4); Lymphocytes % (auto) 18.7 %; Mean Corpuscular Hemoglobin 27.1 pg (25-34); Mean Corpuscular Volume 84.7 fL (80-100); Mean Platelet Volume 10.8 fL (7.4-10.4); Monocytes # (auto) 0.78 K/uL (0.11-0.59); Monocytes % (auto) 13.5 %; Neutrophils # (auto) 3.35 K/uL (1.4-6.5); Neutrophils % (auto) 58.1 %; Platelet Count 215 K/uL (130-400); RDW Coefficient of Variation 12.9 % (11.5-14.5); RDW Standard Deviation 40.4 fL (36.4-46.3); Red Blood Count 4.13 M/uL (4.7-6.1); White Blood Count 5.77 K/uL (4.8-10.8)
[2021-04-29 06:23] LABS: Albumin Level 2.8 gm/dl (3.4-5.0); BUN Creatinine Ratio 19.2 (10-20); Calcium 9.6 mg/dl (8.5-10.1); Creatinine Clr Calc Pharmacy 142.8 ml/min; Est GFR (African American) 123.4 ml/min; Est GFR (Non-African American) 106.5 ml/min; Potassium 4.2 mmol/L (3.5-5.1)
[2021-04-29 06:26] LABS: Albumin Globulin Ratio 0.6 (0.9-2); Bilirubin,Total 0.3 mg/dl (0.2-1); Globulin 4.6 gm/dl (2.5-4.0); Total Protein 7.4 gm/dl (6.4-8.2)
[2021-04-29] MEDS: ENOXAPARIN INJ 40 MG/0.4 ML SYR SQ SCH (08:16)
[2021-04-29] MEDS: POLYETHYLENE (MIRALAX) 17 GM PACK PO SCH (08:16)
[2021-04-29] MEDS: SENNA 8.6 MG TAB PO SCH (08:16)
[2021-04-29] MEDS: INSULIN ASPART PER UNIT SC SCH ×5 (09:04→21:23)
[2021-04-29] MEDS: INSULIN GLARGINE SOLOSTAR 100 UNITS/ML 3 ML PEN SQ SCH ×2 (09:05→21:10)
[2021-04-29] MEDS: NAFCILLIN SODIUM 2,000 MG in DEXTROSE 5% 100 ML IV SCH ×4 (09:12→21:04)
[2021-04-29] MEDS: ACETAMINOPHEN 325 MG TAB PO PRN ×2 (11:37→21:04)
--- NOTE | 2021-04-29 11:57 | Hospitalist Progress Note ---
Date of Service April 29, 2021 Assessment & Plan (1) Acute osteomyelitis of thoracic spine: Plan: 40yo male with DM-I, HTN, HLP presenting with 3-4 weeks of progressive back pain. Found with osteomyelitis and discitis of T7 and T8. Possibly spread from cutaneous abscess that patient had recently. He is afebrile, HD stable, nontoxic in appearance. No neurological deficits. -Blood cultures ordered from ED, preliminary positive growth of MSSA, pansensitive -D/C Vancomycin and Cefepime. Will start on Nafcillin 2g IV q4h -Pain control with Tylenol and Tramadol -Flexeril PRN spasm -Neuro checks q shift -Orthopedic consultation placed to Dr. Vega - assistance appreciated - Recommending IV abx, no plans for surgical intervention at this time -ER has contacted several institutions to include [facility] re: transfer for neurosurgery. Pt's family requesting if transfer is necessary to be [facility]. -I contacted [facility] [place] to d/w radio communication coordinator neurosurgery team to determine if transfer is necessary. Kiara called late last PM after I had already left the hospital. Will attempt again today. -Pt will need roughly 8 weeks of IV abx, cannot place PICC line until blood cultures are clear -Obtain echo to look for vegetation d/t staph bacteremia -Will need outpatient referral to ID which can be arranged by nurse navigator upon d/c (2) Bacteremia: Plan: -Empiric IV abx -2D Echocardiogram -Repeat blood cultures in 48 hours (12/20 AM) (3) Discitis of thoracic region: Plan: As above. No epidural abscess present. No neurological signs or symptoms -Antibiotics as above -Appreciate ortho input by Dr. Vega (4) Diabetes type I: Plan: Elevated blood sugar presently -Continue Lantus 30u BID -SSI -Goal blood sugar 100 - 140 -Diabetic diet -Hemoglobin a1c is pending -Counseled pt on importance of diet compliance, noted candy in room (5) Hypertension: Plan: Chronic. Mildly elevated at present at 141/77 -Continue Cozaar (6) Dyslipidemia: Plan: Chronic -Continue Atorvastatin 20mg po qHS (7) Obesity (BMI 30-39.9): Plan: -Recommend dietary changes -Incorporate exercise into regimen when acute issues resolve Plan: Ppx - Lovenox 40mg sq daily Interventions as outlined above Follow up labs in AM including repeat blood cultures Will need placement of PICC line once confirmed repeat blood cultures are clear Admission and Anticipated Discharge Date Admission Date: April 27, 2021 Subjective Mr. Soria was seen on rounds this morning. Pt was hospitalized 04/27 for acute discitis and osteomyelitis of thoracic spine. Primary presenting complaint was back pain. He was empirically started on Cefepime and Vancomycin. Blood cultures ordered and are preliminarily positive in all 4 tubes for MSSA. He denies recreational IV drug use. He has no complaints at present, denies chest pain, HUGHES, n/v/d, f/c, headache, or gu symptoms. Denies numbness/tingling, focal weakness in his legs. He did reports a few weeks ago he had a superficial abscess on his upper back that his mother drained at home. Presently, pt has some mid back discomfort but is tolerable. He was having muscle spasms last evening and requested to be medicated overnight. Review of Systems Review of Systems: CONSTITUTIONAL: Denies weight loss/gain, fever and chills, fatigue, malaise, generalized weakness. HEENT: Denies changes in vision and hearing. RESPIRATORY: Denies SOB, cough, wheezing. CV: Denies palpitations, CP, lower extremity edema, orthopnea, PND. GI: Denies abdominal pain, nausea, vomiting and diarrhea. : Denies dysuria and urinary frequency, urgency, hesitancy. MUSCULOSKELETAL: +back pain and spasms. SKIN: Denies rash and pruritus. NEUROLOGICAL: Denies headache, syncope, focal weakness, numbness, tingling. PSYCHIATRIC: Denies recent changes in mood. Denies anxiety and depression. Physical Exam Physical Exam: GENERAL: 40 yo obese WM. Pleasant, cooperative. NAD. LUNGS: CTAB. No W/R/R. CARDIOVASCULAR: RRR. No M/G/R. ABDOMEN: Soft, NT, BS normal x 4 quad. EXTREMITIES: No edema. Non-tender. Peripheral pulses +2/4. No altered sensation. NEUROLOGIC: A&O x3. M/S: No tenderness to palp of thoracic spinous processes or paravertebral muscles. PSYCHIATRIC: Cooperative. Appropriate mood and affect. SKIN: Warm, dry, intact. No rashes or lesions. Results & Data Results & Data ([facility]) Vital Signs (Past 12 Hours) Vital Signs Temp Pulse Resp BP Pulse Ox 12/19/21 08:07 36.7 C 83 18 151/92 H 95 Laboratory Results 04/29/21 05:17 04/29/21 05:17 ESR=64 Spec: [id number] Collected: 04/27/21 Received: 04/27/21-[address]: Linden Graff, DO Source: Blood OV Order: Ordered: Blood Culture Comments: Comment Default is separate sites, same time Procedure Result Verified Site Blood Culture Aerobic Preliminary 04/29/21-43 Organism 1 Staphylococcus aureus Sens Sensitivities to Follow Blood MRSA PCR Performed If viewing in EMR, results available under L AB Serology tab. S aureus RX M.I.C. --- --------- Clindamycin S <=0.5 Daptomycin S <=0.5 Erythromycin S <=0.5 Oxacillin S 0.5 Tetracycline S <=4 Trimeth/Sulfa S <=0.5/9.5 Vancomycin S 2 S = SENSITIVE I = INTERMEDIATE R = RESISTANT Blood Culture Anaerobic Preliminary 04/29/21 Organism 1 Staphylococcus aureus Sens Sensitivities to Follow Organism 2 Staphylococcus species Sens Sensitivities Dependent on Further Identification Phoned positive Blood Culture Gram Stain report to power ayala on 04/27/21 at 1705 by [id number]. [place] [id number]. PG Care Time/CCT Total # of Minutes Spent Total Time Spent with Patient: Total time spent is greater than 50% in coordination of care (as documented) at patient's floor/unit and/or counseling patient: Coding Level of Care Code 02315 Subseq Hosp Care Lvl 3 Diagnoses Acute osteomyelitis of thoracic spine M46.24 Bacteremia R78.81 Discitis of thoracic region M46.44 Diabetes type I E10.9 Diabetes mellitus complication status: without complication Hypertension I10 Dyslipidemia E78.5 Obesity (BMI 30-39.9) E66.9 (1) Diabetes type I Diabetes mellitus complication status: without complication Qualified Code(s): E10.9 - Type 1 diabetes mellitus without complications
[2021-04-29] MEDS: ATORVASTATIN 20 MG TAB PO SCH (21:03)
[2021-04-29] MEDS: LOSARTAN POTASSIUM 25 MG TAB PO SCH (21:03)
[2021-04-30] MEDS: NAFCILLIN SODIUM 2,000 MG in DEXTROSE 5% 100 ML IV SCH ×4 (00:52→12:42)
[2021-04-30] MEDS: ACETAMINOPHEN 325 MG TAB PO PRN (05:49)
[2021-04-30 07:20] LABS: Basophils # (auto) 0.03 K/uL (0-0.2); Basophils % (auto) 0.6 %; Eosinophils # (auto) 0.41 K/uL (0-0.5); Eosinophils % (auto) 7.7 %; Hematocrit (blood only) 35.9 % (42-52); Hemoglobin 11.7 g/dL (14.0-18.0); Immature Granulocytes # (auto) 0.03 K/uL (0.00-0.02); Immature Granulocytes % (auto) 0.6 %; Lymphocytes # (auto) 0.98 K/uL (1.2-3.4); Lymphocytes % (auto) 18.4 %; Mean Corpuscular Hemoglobin 27.1 pg (25-34); Mean Corpuscular Hgb Conc 32.6 g/dL (32-36); Mean Corpuscular Volume 83.1 fL (80-100); Mean Platelet Volume 10.4 fL (7.4-10.4); Monocytes # (auto) 0.43 K/uL (0.11-0.59); Monocytes % (auto) 8.1 %; Neutrophils # (auto) 3.44 K/uL (1.4-6.5); Neutrophils % (auto) 64.6 %; Platelet Count 231 K/uL (130-400); RDW Coefficient of Variation 12.9 % (11.5-14.5); Red Blood Count 4.32 M/uL (4.7-6.1); White Blood Count 5.32 K/uL (4.8-10.8)
[2021-04-30 07:24] LABS: Estimated Average Glucose 286 mg/dl; Hemoglobin A1C 11.6 % (4.5-5.6)
[2021-04-30 07:58] LABS: BUN Creatinine Ratio 15.8 (10-20); Calcium 9.5 mg/dl (8.5-10.1); Creatinine Clr Calc Pharmacy 146.1 ml/min; Est GFR (African American) 124.6 ml/min; Est GFR (Non-African American) 107.5 ml/min
[2021-04-30] MEDS: CYCLOBENZAPRINE HCL 10 MG TAB PO PRN (08:20)
[2021-04-30] MEDS: SENNA 8.6 MG TAB PO SCH (08:20)
[2021-04-30] MEDS: ENOXAPARIN INJ 40 MG/0.4 ML SYR SQ SCH (08:21)
[2021-04-30] MEDS: POLYETHYLENE (MIRALAX) 17 GM PACK PO SCH (08:21)
[2021-04-30] MEDS: INSULIN ASPART PER UNIT SC SCH ×4 (08:26→20:39)
[2021-04-30] MEDS: INSULIN GLARGINE SOLOSTAR 100 UNITS/ML 3 ML PEN SQ SCH ×2 (08:26→20:39)
--- NOTE | 2021-04-30 10:48 | Orthopedic Progress Note ---
Date of Service April 30, 2021 Assessment & Plan (1) Acute osteomyelitis of thoracic spine: Plan: At this time he is progressing appropriately. Awaiting for placement of a PICC line. He may undergo activity as tolerated and again lift no more than 5 pounds. Admission and Anticipated Discharge Date Admission Date: April 27, 2021 Subjective Patient's back pain has improved. Denies any numbness and tingling into the upper and lower extremities. States he is tolerates ambulation well. Physical Exam Physical Exam: Patient has good strength testing appears comfortable. Results & Data ([facility]) Vital Signs (Past 12 Hours) Vital Signs Temp Pulse Resp BP Pulse Ox 04/30/21 07:12 36.4 C L 74 18 128/78 97
--- NOTE | 2021-04-30 13:15 | Hospitalist Progress Note ---
Date of Service April 30, 2021 Assessment & Plan (1) Acute osteomyelitis of thoracic spine: Plan: Presented with 3-4 weeks of progressive back pain. Found with osteomyelitis and discitis of T7 and T8. Possibly spread from cutaneous abscess that patient had recently. - Blood cultures from 04/27 with stanley-sensitive MSSA -> Repeat blood cultures drawn on 04/30 - NGTD - Switch from nafcillin to cefazolin - Seen by NSGY with no indication for surgery at this time. - TTE on 04/29 with no vegetations. - ID consult pending for today. - PICC to be placed on 05/02 if 04/30 blood cultures remain negative. - Pain control with Tylenol and Tramadol - Flexeril PRN spasm (2) Bacteremia: Plan: MSSA. As above. (3) Discitis of thoracic region: Plan: As above. No epidural abscess present. No neurological signs or symptoms. - As above (4) Diabetes type I: Plan: A1c is 11.6% this admission. - Continue Lantus 30 units BID - Sliding scale insulin - Sugars ranging from 170 - 240 in last 24 hours. (5) Hypertension: Plan: Chronic. BP stable today at 130/80. - Continue Cozaar (6) Dyslipidemia: Plan: - Continue atorvastatin 20mg po qHS (7) Obesity (BMI 30-39.9): Plan: - Recommend dietary changes - Incorporate exercise into regimen when acute issues resolve Plan: VTE Ppx - Lovenox 40mg sq daily Admission and Anticipated Discharge Date Admission Date: April 27, 2021 Subjective Doing well today. Back pain is 80% better. Reports no fevers/chills, chest pain, shortness of breath, abdominal pain, nausea, or vomiting. Physical Exam Constitutional: WD/WN, vitals as above Eyes: EOM intact bilaterally; no conjunctival abnormality ENMT: external ear and nose normal, oropharynx normal Neck: trachea midline, no thyromegaly normal visual inspection Respiratory: normal respiratory effort, lungs clear to auscultation no respiratory distress Cardiovascular: RRR, no murmur, no edema Gastrointestinal (Abdomen): Inspection/Auscultation: abdomen normal to inspection; abdomen not distended Musculoskeletal: no cyanosis or clubbing, extremities motor strength 5/5 Spine: + thoracic spinal tenderness (Mild on mid-thoracic right side.) Skin: no rashes, warm and dry Neurologic: moves all extremities and awake Motor/Sensory: normal movement (Normal strength) and no sensory deficit Psychiatric: Orientation: alert, oriented to person and cooperative Results & Data Results & Data ([facility]) Vital Signs (Past 12 Hours) Vital Signs Temp Pulse Resp BP Pulse Ox 04/30/21 07:12 36.4 C L 74 18 128/78 97 PG Care Time/CCT Total # of Minutes Spent Total Time Spent with Patient: Total time spent is greater than 50% in coordination of care (as documented) at patient's floor/unit and/or counseling patient: Coding Level of Care Code 52062 Subseq Hosp Care Lvl 3 Diagnoses Acute osteomyelitis of thoracic spine M46.24 Bacteremia R78.81 Discitis of thoracic region M46.44 Diabetes type I E10.9 Diabetes mellitus complication status: without complication Hypertension I10 Dyslipidemia E78.5 Obesity (BMI 30-39.9) E66.9 (1) Diabetes type I Diabetes mellitus complication status: without complication Qualified Code(s): E10.9 - Type 1 diabetes mellitus without complications
[2021-04-30] MEDS: ceFAZolin 2000MG 2,000 MG/15 ML SYR IV SCH ×2 (14:12→21:52)
[2021-04-30] MEDS: LOSARTAN POTASSIUM 25 MG TAB PO SCH (20:38)
[2021-04-30] MEDS: ATORVASTATIN 20 MG TAB PO SCH (20:39)
[2021-05-01] MEDS ORDERED: Nursing to Pharmacy Communication SCH ×2 (00:15→14:00)
[2021-05-01] MEDS: INSULIN ASPART PER UNIT SC SCH ×5 (01:04→21:18)
[2021-05-01] MEDS: CYCLOBENZAPRINE HCL 10 MG TAB PO PRN (01:07)
[2021-05-01] MEDS: ACETAMINOPHEN 325 MG TAB PO PRN ×4 (01:07→20:55)
[2021-05-01] MEDS: ceFAZolin 2000MG 2,000 MG/15 ML SYR IV SCH ×3 (05:23→20:56)
[2021-05-01] MEDS: ENOXAPARIN INJ 40 MG/0.4 ML SYR SQ SCH (08:48)
[2021-05-01] MEDS: INSULIN GLARGINE SOLOSTAR 100 UNITS/ML 3 ML PEN SQ SCH ×2 (08:49→21:16)
[2021-05-01] MEDS: POLYETHYLENE (MIRALAX) 17 GM PACK PO SCH (09:25)
[2021-05-01] MEDS: SENNA 8.6 MG TAB PO SCH (09:25)
[2021-05-01] MEDS ORDERED: MIDAZOLAM HCL 5 MG/ML 1 ML VIAL ONE (11:28)
[2021-05-01] MEDS ORDERED: BENZOCAINE/TETRACAIN/BUTAM 50 APPLN/5 GM CAN EXT ONE (11:28)
[2021-05-01] MEDS ORDERED: fentaNYL citrate 100 MCG/2 ML VIAL ONE (11:28)
--- NOTE | 2021-05-01 12:03 | Hospitalist Progress Note ---
Date of Service May 01, 2021 Assessment & Plan (1) Acute osteomyelitis of thoracic spine: Plan: Presented with 3-4 weeks of progressive back pain. Found with osteomyelitis and discitis of T7 and T8. Possibly spread from cutaneous abscess that patient had recently. - Blood cultures from 04/27 with stanley-sensitive MSSA -> Repeat blood cultures drawn on 04/30 - NGTD - Switch from nafcillin to cefazolin - Seen by NSGY with no indication for surgery at this time. - TTE on 04/29 with no vegetations. - ID consulted -> Plan for 6 weeks of IV abx at least. Would want CRP normalized at least 3 weeks prior to stopping abx. - PICC to be placed on 05/02 if 04/30 blood cultures remain negative. Home abx ordered and being arranged. - MATT planned for today. Discussed with cardiology and ID. - Pain control with Tylenol and Tramadol - Flexeril PRN spasm (2) Bacteremia: Plan: MSSA. As above. (3) Discitis of thoracic region: Plan: As above. No epidural abscess present. No neurological signs or symptoms. - As above (4) Diabetes type I: Plan: A1c is 11.6% this admission. - Continue Lantus 30 units BID - Sliding scale insulin - Sugars ranging from 170 - 220 in last 24 hours. (5) Hypertension: Plan: Chronic. BP stable today at 120/60. - Continue Cozaar (6) Dyslipidemia: Plan: - Continue atorvastatin 20mg po qHS (7) Obesity (BMI 30-39.9): Plan: - Recommend dietary changes - Incorporate exercise into regimen when acute issues resolve Plan: VTE Ppx - Lovenox 40mg sq daily Admission and Anticipated Discharge Date Admission Date: April 27, 2021 Subjective Doing well today. Back pain is still 80% better; not dramatically different from yesterday. Worse when sitting up. Reports no fevers/chills, chest pain, shortness of breath, abdominal pain, nausea, or vomiting. Physical Exam Constitutional: WD/WN, vitals as above Eyes: EOM intact bilaterally; no conjunctival abnormality ENMT: external ear and nose normal, oropharynx normal Neck: trachea midline, no thyromegaly normal visual inspection Respiratory: normal respiratory effort, lungs clear to auscultation no respiratory distress Cardiovascular: RRR, no murmur, no edema Gastrointestinal (Abdomen): Inspection/Auscultation: abdomen normal to inspection; abdomen not distended Musculoskeletal: no cyanosis or clubbing, extremities motor strength 5/5 Spine: + thoracic spinal tenderness (Mild on mid-thoracic right side.) Skin: no rashes, warm and dry Neurologic: moves all extremities and awake Motor/Sensory: normal movement (Normal strength) and no sensory deficit Psychiatric: Orientation: alert, oriented to person and cooperative Results & Data Results & Data ([facility]) Vital Signs (Past 12 Hours) Vital Signs Temp Pulse Resp BP Pulse Ox 05/01/21 07:41 36.5 C 87 16 117/63 95 PG Care Time/CCT Total # of Minutes Spent Total Time Spent with Patient: Total time spent is greater than 50% in coordination of care (as documented) at patient's floor/unit and/or counseling patient: Coding Level of Care Code 54043 Subseq Hosp Care Lvl 3 Diagnoses Acute osteomyelitis of thoracic spine M46.24 Bacteremia R78.81 Discitis of thoracic region M46.44 Diabetes type I E10.9 Diabetes mellitus complication status: without complication Hypertension I10 Dyslipidemia E78.5 Obesity (BMI 30-39.9) E66.9 (1) Diabetes type I Diabetes mellitus complication status: without complication Qualified Code (s): E10.9 - Type 1 diabetes mellitus without complications
--- NOTE | 2021-05-01 12:09 | Pre Anesthesia Assessment ---
Date of Service May 01, 2021 Pre Sedation Assessment Vital Signs Temp Pulse Pulse Resp BP BP Pulse Ox 05/01/21 11:59 82 16 159/87 H 97 05/01/21 07:41 36.5 C 87 16 117/63 95 04/30/21 22:24 36.6 C 85 16 125/82 95 04/30/21 16:15 36.7 C 92 H 18 163/91 H 96 Cardiovascular RRR, no murmur, no edema Respiratory normal respiratory effort, lungs clear to auscultation Pre-Sedation Airway Assessment Smoking Status: Never smoker Hx Sleep Apnea: No Short, Thick Neck: No Thyromental Distance: > or= 3.5 Finger Breadths Oral Cavity: + WNL Mallampati Class: IV ASA: ASA3 NPO Status Date of Last Intake of Fluids: 04/30/21 Time of Last Intake of Fluids: 23:00 Date of Last Intake of Solid Food: 04/30/21 Time of Last Intake of Solid Foods: 23:00 Procedure Planning Contraindications for Sedation: none Current Medications Reviewed: Yes Notes The planned sedation has been discussed with the patient. Informed Consent was obtained. I have identified the patient, determined the appropriateness of sedation and have assessed the patient immediately prior to the procedure. All medicine(s) and interventions are by my order.
--- NOTE | 2021-05-01 13:02 | Post Operative Brief Note ---
Cardiology Brief Post Op Date of Surgery May 01, 2021 Pre & Post Diagnosis Operation Date: 05/01/21 12:00 <No data on this case meets the specified criteria> Procedure MATT Sheet Rock Layer Shyam Meadows MD Childcare Aide Sloss Estimated Blood Loss 0 Findings See Below No vegetation noted. Complications none
--- NOTE | 2021-05-01 13:04 | Post Anesthesia Assessment ---
Date of Service May 01, 2021 Post Sedation Assessment Vital Signs Temp Pulse Pulse Pulse Resp BP BP 05/01/21 12:50 93 H 16 111/77 05/01/21 12:45 74 16 119/67 05/01/21 12:40 80 16 127/81 05/01/21 12:35 94 H 16 145/83 H 05/01/21 12:30 96 H 16 157/85 H 05/01/21 12:25 95 H 16 153/80 H 05/01/21 12:20 93 H 16 161/78 H 05/01/21 11:59 82 16 159/87 H 05/01/21 07:41 36.5 C 87 16 117/63 04/30/21 22:24 36.6 C 85 16 125/82 04/30/21 16:15 36.7 C 92 H 18 163/91 H Pulse Ox 05/01/21 12:50 96 05/01/21 12:45 99 05/01/21 12:40 99 05/01/21 12:35 100 05/01/21 12:30 100 05/01/21 12:25 100 05/01/21 12:20 98 05/01/21 11:59 97 05/01/21 07:41 95 04/30/21 22:24 95 04/30/21 16:15 96 Recovery Score Activity: Moves 4 extremities Respiration: Deep Breath/Cough Circulation: +/-20% PreAnes Value Consciousness: Fully Awake Oxygen Saturation: > 92% On Room Air Post Anesthesia Score: 10 Discharge Sedation Level of Care: Fast Track Phase II Post Sedation Plan On clinical assessment, the patient appears to have tolerated the sedation without complications. Patient is recovering as anticipated. Patient will continue to be monitored by nursing and may be discharged when sedation discharge criteria are met per below protocol. Upon Completions of procedure up to 15 minutes continue every 5 minute vital signs and the P.A.R. score; then discharge to a Phase I or Fast Track to Phase II per the following guidelines: * Discharge Patient to appropriate Phase II area if PAR is 8 or greater or return to pre- procedure baseline. The post - procedure orders will be as directed. * If PAR score is less than 8 or not return to pre-procedure baseline then patient will follow Phase I monitoring till PAR is reached for Phase II. The Phase I may be done in procedure room or may call to secure a Phase I area. * If naloxone or flumazenil are used for reversal, hold in Phase I for continued monitoring from when last reversal dose was given for a minimum of 60 minutes or longer pending the nurse and/or physician discretion of patient condition before discharge to Phase II. Please call the Sedation Physician to re-evaluate and complete post-note for discharge to Phase II area. Do NOT discharge from procedure sedation or Phase 1 until post- sedation evaluation note is complete by procedure /sedation MD Sedation Discharge Instructions to be given to the patient at discharge to home.
--- NOTE | 2021-05-01 17:02 | XCELERA ---
[id number]
[2021-05-01] MEDS: LOSARTAN POTASSIUM 25 MG TAB PO SCH (20:53)
[2021-05-01] MEDS: ATORVASTATIN 20 MG TAB PO SCH (20:53)
[2021-05-02] MEDS: ACETAMINOPHEN 325 MG TAB PO PRN ×2 (01:38→08:48)
[2021-05-02] MEDS: CYCLOBENZAPRINE HCL 10 MG TAB PO PRN (01:40)
[2021-05-02] MEDS: ceFAZolin 2000MG 2,000 MG/15 ML SYR IV SCH ×2 (06:03→13:27)
[2021-05-02 08:28] LABS: Basophils # (auto) 0.02 K/uL (0-0.2); Basophils % (auto) 0.4 %; Eosinophils # (auto) 0.37 K/uL (0-0.5); Eosinophils % (auto) 7.1 %; Hematocrit (blood only) 38.4 % (42-52); Hemoglobin 12.4 g/dL (14.0-18.0); Immature Granulocytes # (auto) 0.04 K/uL (0.00-0.02); Immature Granulocytes % (auto) 0.8 %; Lymphocytes # (auto) 1.08 K/uL (1.2-3.4); Lymphocytes % (auto) 20.6 %; Mean Corpuscular Hemoglobin 27.2 pg (25-34); Mean Corpuscular Hgb Conc 32.3 g/dL (32-36); Mean Corpuscular Volume 84.2 fL (80-100); Mean Platelet Volume 10.5 fL (7.4-10.4); Monocytes # (auto) 0.44 K/uL (0.11-0.59); Monocytes % (auto) 8.4 %; Neutrophils # (auto) 3.29 K/uL (1.4-6.5); Neutrophils % (auto) 62.7 %; Platelet Count 232 K/uL (130-400); RDW Coefficient of Variation 13.1 % (11.5-14.5); RDW Standard Deviation 39.4 fL (36.4-46.3); Red Blood Count 4.56 M/uL (4.7-6.1); White Blood Count 5.24 K/uL (4.8-10.8)
[2021-05-02 08:40] LABS: BUN Creatinine Ratio 17.1 (10-20); C Reactive Protein 1.33 mg/dl (0-0.29); Calcium 10.1 mg/dl (8.5-10.1); Creatinine Clr Calc Pharmacy 159.3 ml/min; Est GFR (Non-African American) 111.3 ml/min; Potassium 4.1 mmol/L (3.5-5.1)
[2021-05-02] MEDS: ENOXAPARIN INJ 40 MG/0.4 ML SYR SQ SCH (08:42)
[2021-05-02] MEDS: INSULIN GLARGINE SOLOSTAR 100 UNITS/ML 3 ML PEN SQ SCH (08:43)
[2021-05-02] MEDS: INSULIN ASPART PER UNIT SC SCH ×2 (08:49→12:41)
[2021-05-02] MEDS: SENNA 8.6 MG TAB PO SCH (08:55)
[2021-05-02] MEDS: POLYETHYLENE (MIRALAX) 17 GM PACK PO SCH (08:55)
--- NOTE | 2021-05-02 17:34 | Discharge Summary ---
Date of Service May 02, 2021 Admission HPI Per Admitting Provider Isaiah Soria is a 40yo male with Type I DM, HTN, HLP presenting with back pain. Pain has been persistent and progressive for the last 3-4 weeks. Pain is in his lower back with radiation to bilateral flanks, occasionally to his anterior abdomen. He has been seen in the ER several times without definitive diagnosis. He has been taking Advil and Tylenol with some relief. Also completed a course of steroids. He denies fever, chills, sweats, rigors, malaise. Denies chest pain, SOB, abdominal pain, nausea, vomiting, diarrhea No neurological complaints - denies numbness, tingling, weakness He has been experiencing frequent and severe muscle spasms and has been taking medication for that ER Course: Morphine, Zofran, Vancomycin, Cefepime, NSS x 500mL Principal Diagnosis Osteomyelitis and discitis of T7 and T8 Discharge Exam Constitutional WD/WN, vitals as above Eyes EOM intact bilaterally; no conjunctival abnormality ENMT external ear and nose normal, oropharynx normal Neck trachea midline, no thyromegaly normal visual inspection Respiratory normal respiratory effort, lungs clear to auscultation no respiratory distress Cardiovascular RRR, no murmur, no edema Gastrointestinal (Abdomen) Inspection/Auscultation: abdomen normal to inspection; abdomen not distended Musculoskeletal no cyanosis or clubbing, extremities motor strength 5/5 Spine: + thoracic spinal tenderness (Mild on mid-thoracic right side.) Skin no rashes, warm and dry Neurologic moves all extremities and awake Motor/Sensory: normal movement (Normal strength) and no sensory deficit Psychiatric Orientation: alert, oriented to person and cooperative Discharge Data Allergies Allergy/AdvReac Type Severity Reaction Status Date / Time No Known Allergies Allergy Unverified 04/27/21 01:53 Consultations 04/27/21 06:26 ED Decision to Admit Stat 04/27/21 06:34 Consult Orthopedic Surgery Routine 04/30/21 08:29 Consult Infectious Diseases Routine Procedures Performed Operation Date: 05/01/21 12:00 Actual Procedures p Echo Transesophageal - Shyam Meadows MD s Echo Color Flow - Shyam Meadows MD s Echo Doppler Complete - Shyam Meadows MD Ordered Studies 04/26/21 23:23 CT angio chest PE protocol Urgent 04/26/21 23:24 CT abd pelvis IV con only Urgent 04/27/21 06:30 MR thoracic spine wo/w con Stat Diabetes Follow up Diabetes Follow-up Needed for HgbA1c >9% Hospital Course (1) Acute osteomyelitis of thoracic spine: Presented with 3-4 weeks of progressive back pain. Found with osteomyelitis and discitis of T7 and T8. Possibly spread from cutaneous abscess that patient had recently. - Blood cultures from 04/27 with stanley-sensitive MSSA -> Repeat blood cultures drawn on 04/30 - NGTD - Seen by NSGY with no indication for surgery at this time. - TTE on 04/29 with no vegetations. - ID consulted -> Plan for 6 weeks of IV abx at least. Would want CRP normalized at least 3 weeks prior to stopping abx. - PICC to be placed on 05/02 if 04/30 blood cultures remain negative. Home abx ordered and being arranged. - MATT on 05/01 without any vegetations. - Plan to f/u with his [facility] PCP and ID in 1 week. (2) Bacteremia: MSSA. As above. (3) Discitis of thoracic region: As above. No epidural abscess present. No neurological signs or symptoms. - As above (4) Diabetes type I: A1c is 11.6% this admission. - Continue Lantus 30 units BID - Sliding scale insulin - Sugars ranging from 170 - 220 in last 24 hours. (5) Hypertension: Chronic. BP stable today at 120/60. - Continue Cozaar (6) Dyslipidemia: - Continue atorvastatin 20mg po qHS (7) Obesity (BMI 30-39.9): - Recommend dietary changes - Incorporate exercise into regimen when acute issues resolve VTE Ppx - Lovenox 40mg sq daily Total Time Total Time Spent Total Time Spent (In Minutes): 35 Discharge Plan Discharge Items Patient Disposition: Home - Self-Care Reason For Visit: OSTEOMYELITIS, DISKITIS Discharge Diagnosis: Bloodstream infection, bone and disc infection in the back Activity: Resume your previous activity Non-emergency contact: Primary Care Provider and Specialist Call non-emergency contact if: your symptoms worsen, your pain is worsening and your rectal temperature is above 100.4 Follow-up/Referrals: Huey Miller DO [Primary Care Provider] - 05/08/21 10:30 am (Primary care appointment. You will see the Jonny CESPEDES.) Sidney Liu MD [Outside Practitioners] - 05/10/21 1:00 pm (Infectious disease with [facility] Edson.) Diet: Regular Addtl Attending Provider Instructions: Mr. Soria, You were admitted to the hospital with an infection in your blood stream that we assume must have come from the boil on your back a month or so ago. The infection got into your back which was causing you such pain. Luckily, the infection did not seem to have any attachment to your heart or heart valves which can sometimes happen. You will need IV antibiotics for 6 week and maybe a bit longer. You will need to follow up next week with your PCP and then a few days after that with the Infectious Disease doctor at [facility]. Those appointments are listed in this paperwork. You will need weekly blood work while on the antibiotics to be sure you are doing well and clearing the infection. You (or a loved one) will need to give yourself the antibiotics 3 times per day. Pending Studies at Discharge: No Stand-Alone Forms: My [facility], Smoking Cessation Medications and DC Order Prescriptions: New cefazolin 1 gram recon soln 2 g IV Q8H Qty: 1 RF: 0 Continued losartan 25 mg tablet 25 mg PO PM RF: 0 insulin lispro [Humalog U-100 Insulin] 100 unit/mL solution 12 unit subcut AC RF: 0 Lantus Solostar U-100 Insulin 100 unit/mL (3 mL) insulin pen 30 unit SUBCUT AMPM RF: 0 atorvastatin 20 mg tablet 20 mg PO HS RF: 0 cyclobenzaprine 10 mg tablet 10 mg PO TID PRN (Reason: Muscle Spasm) RF: 0 Discharge Orders: Discharge Order (Routine); Ordered 05/02/21 Ordered By: Jordan Navas/Other Patient Handouts: Caring for Your Central Vein Access, PICC Change Dressing Dc Admission Data Admit Date/Time: 04/27/21 06:34 Attending Provider: Jordan Villasenor Admit Provider: Violeta Jiang Primary Care Provider: Huey Miller Other Providers: Boogie Vega ; Jordan Villasenor ; Virgil Motley ; Petty Fowler ; Tai Jiang I. ; Casey Yanez II ; Reyna Turner ; Linden Ward ; Villa Wetzel Other Interventions: Discharge Summary Assessment (RN) Last Done: 05/02/21 13:07 Coding Level of Care Code D/C DAY MANAGEMENT >30 MINS Diagnoses Acute osteomyelitis of thoracic spine M46.24 Bacteremia R78.81 Discitis of thoracic region M46.44 Diabetes type I E10.9 Diabetes mellitus complication status: without complication Hypertension I10 Dyslipidemia E78.5 Obesity (BMI 30-39.9) E66.9
== END 2021-05-02 13:46 | disposition home or self-care (01) | DRG 540 ==
LOC: ED 23:03 → EDINP 04-27 06:34 → SUATTDRO 04-27 06:34 → 3N 04-27 10:13